=== PATIENT | male | born 1960 | race Caucasian/White ===

== ENCOUNTER 2018-07-17 10:40 | Inpatient (IN) | payer MEDICARE, MEDICAID ==
[2018-07-17 11:29] LABS: HEMOGLOBIN 12.1 gm/dL (12-16)
[2018-07-17 11:31] LABS: % BASOPHILS 0.2 % (0.0-2.0); % EOSINOPHILS 0.2 % (0.0-5.0); % LYMPHOCYTES 14.6 % (20.0-50.0); % MONOCYTES 12.8 % (2.0-10.0); % NEUTROPHILS 72.2 % (40.0-80.0); HEMATOCRIT 37.2 % (41.0-60); LYMPHOCYTE ABSOLUTE 1.5 Th/cmm (1.5-3.0); MEAN CELL VOLUME 95.5 fl (80-99); MEAN CORPUSCULAR HEMOGLOBIN 31.1 pg (26.0-30.0); MEAN CORPUSCULAR HGB CONC 32.6 pg (28.0-36.0); MEAN PLATELET VOLUME 8.2 fl; MONOCYTE ABSOLUTE 1.3 Th/cmm (0.3-1.0); NEUTROPHILE ABSOLUTE 7.2 Th/cmm (1.8-8.0); PLATELET COUNT 355 Th/cmm (150-400); RED BLOOD COUNT 3.89 Mil/cmm (4.30-5.70); RED CELL DISTRIBUTION WIDTH 12.9 % (11.5-20.0)
[2018-07-17 11:38] LABS: INR 0.99 (0.5-1.4); PROTHROMBIN TIME (TEST) 10.3 SECONDS (9.5-11.5)
[2018-07-17 11:44] LABS: ALB/GLOB RATIO 0.9 (1.0-1.8); ALBUMIN 3.4 gm/dL (4.2-5.5); ALKALINE PHOSPHATASE 80 U/L (34-104); ANION GAP 13.7 (7.0-16.0); BILIRUBIN,TOTAL 0.3 mg/dL (0.3-1.0); BUN - UREA NITROGEN 25 mg/dL (7-25); CARBON DIOXIDE 30.7 mEq/L (21.0-31.0); CHLORIDE 96 mEq/L (98-107); CREATININE - SERUM 0.5 mg/dL (0.7-1.3); GFR AFRICAN-AMERICAN > 60.0 ml/min (>90); GFR NON AFRICAN-AMERICAN > 60.0 ml/min; GLUCOSE 131 mg/dL (70-105); POTASSIUM SERUM 3.4 mEq/L (3.5-5.1); SGOT 20 U/L (13-39); SGPT/ALT 15 U/L (7-52); SODIUM SERUM 137 mEq/L (136-145)
[2018-07-17 11:54] LABS: URINE SOURCE CLEAN C
[2018-07-17 11:59] LABS: URINE BILIRUBIN NEGATIVE (NEGATIVE); URINE BLOOD MODERATE (NEGATIVE); URINE GLUCOSE (UA) NEGATIVE (NEGATIVE); URINE KETONE NEGATIVE (NEGATIVE); URINE LEUKOCYTE ESTERASE SMALL (NEGATIVE); URINE MICROSCOPIC INDICATED? YES; URINE NITRATE NEGATIVE (NEGATIVE); URINE PH 8.5 (4.6 - 8.0); URINE PROTEIN 30 mg/dL (NEGATIVE); URINE UROBILINOGEN 0.2 E.U./dL (0.2 - 1.0)
[2018-07-17 12:02] LABS: URINE CLARITY CLOUDY (CLEAR); URINE COLOR GRAY
[2018-07-17] MEDS ORDERED: IOHEXOL 300mgI/mL 100 ML VIAL ONE (12:05)
[2018-07-17 12:09] LABS: URINE BACTERIA 4+ /hpf (NONE SEEN)
[2018-07-17 12:11] LABS: URINE EPITHELIAL CELLS MANY /lpf (FEW)
--- NOTE | 2018-07-17 13:13 | ED Physician Chart ---
ED Chief Complaint/HPI - Patient Information Allergies:: Allergies Allergy/AdvReac Type Severity Reaction Status Date / Time No Known Allergies Allergy Verified 07/17/18 10:53 Vitals:: Vital Signs - 8 hr 07/17/18 10:54 Temp 98.6 F HR 111 RR 16 BP 114/74 O2 Sat % 96 Family Medical History - Family Member Mother History Unknown: Yes ED Labs/Radiology/EKG Results - Lab Results Results: Laboratory Tests 07/17/18 07/17/18 07/17/18 11:00 11:06 11:16 WBC RBC Hgb Hct MCV MCH MCHC Differential RDW Plt Count MPV Neutrophils % Lymphocytes % Monocytes % Eosinophils % Basophils % PT 10.3 INR 0.99 PTT (Actin FS) 26.2 Sodium Potassium Chloride Carbon Dioxide Anion Gap BUN Creatinine Est GFR ( Amer) Est GFR (Non-Af Amer) BUN/Creatinine Ratio Glucose Calcium Total Bilirubin AST ALT Alkaline Phosphatase Troponin I Total Protein Albumin Globulin Albumin/Globulin Ratio TSH 13.02 H Urine Source CLEAN C Urine Color [place] Urine Clarity CLOUDY Urine pH 8.5 Ur Specific [place] <= 1.005 Urine Protein 30 H Urine Glucose (UA) NEGATIVE Urine Ketones NEGATIVE Urine Blood MODERATE H Urine Nitrate NEGATIVE Urine Bilirubin NEGATIVE Urine Urobilinogen 0.2 Ur Leukocyte Esterase SMALL H Urine RBC 5-10 H Urine WBC 6-10 Ur Epithelial Cells MANY Urine Bacteria 4+ H 07/17/18 07/17/18 07/17/18 11:16 11:16 11:16 WBC 10.0 RBC 3.89 L Hgb 12.1 Hct 37.2 L MCV 95.5 MCH 31.1 H MCHC Differential 32.6 RDW 12.9 Plt Count 355 MPV 8.2 Neutrophils % 72.2 Lymphocytes % 14.6 L Monocytes % 12.8 H Eosinophils % 0.2 Basophils % 0.2 PT INR PTT (Actin FS) Sodium 137 Potassium 3.4 L Chloride 96 L Carbon Dioxide 30.7 Anion Gap 13.7 BUN 25 Creatinine 0.5 L Est GFR ( Amer) > 60.0 Est GFR (Non-Af Amer) > 60.0 BUN/Creatinine Ratio 50.0 Glucose 131 H Calcium 10.0 Total Bilirubin 0.3 AST 20 ALT 15 Alkaline Phosphatase 80 Troponin I 0.03 Total Protein 7.0 Albumin 3.4 L Globulin 3.6 Albumin/Globulin Ratio 0.9 L TSH Urine Source Urine Color Urine Clarity Urine pH Ur Specific [place] Urine Protein Urine Glucose (UA) Urine Ketones Urine Blood Urine Nitrate Urine Bilirubin Urine Urobilinogen Ur Leukocyte Esterase Urine RBC Urine WBC Ur Epithelial Cells Urine Bacteria - Radiology Results Results: Abnormal Lab Results 07/17/18 07/17/18 07/17/18 11:00 11:06 11:16 WBC RBC Hgb Hct MCV MCH MCHC Differential RDW Plt Count MPV Neutrophils % Lymphocytes % Monocytes % Eosinophils % Basophils % PT 10.3 INR 0.99 PTT (Actin FS) 26.2 Sodium Potassium Chloride Carbon Dioxide Anion Gap BUN Creatinine Est GFR ( Amer) Est GFR (Non-Af Amer) BUN/Creatinine Ratio Glucose Calcium Total Bilirubin AST ALT Alkaline Phosphatase Troponin I Total Protein Albumin Globulin Albumin/Globulin Ratio TSH 13.02 H Urine Source CLEAN C Urine Color [place] Urine Clarity CLOUDY Urine pH 8.5 Ur Specific [place] <= 1.005 Urine Protein 30 H Urine Glucose (UA) NEGATIVE Urine Ketones NEGATIVE Urine Blood MODERATE H Urine Nitrate NEGATIVE Urine Bilirubin NEGATIVE Urine Urobilinogen 0.2 Ur Leukocyte Esterase SMALL H Urine RBC 5-10 H Urine WBC 6-10 Ur Epithelial Cells MANY Urine Bacteria 4+ H 07/17/18 07/17/18 07/17/18 11:16 11:16 11:16 WBC 10.0 RBC 3.89 L Hgb 12.1 Hct 37.2 L MCV 95.5 MCH 31.1 H MCHC Differential 32.6 RDW 12.9 Plt Count 355 MPV 8.2 Neutrophils % 72.2 Lymphocytes % 14.6 L Monocytes % 12.8 H Eosinophils % 0.2 Basophils % 0.2 PT INR PTT (Actin FS) Sodium 137 Potassium 3.4 L Chloride 96 L Carbon Dioxide 30.7 Anion Gap 13.7 BUN 25 Creatinine 0.5 L Est GFR ( Amer) > 60.0 Est GFR (Non-Af Amer) > 60.0 BUN/Creatinine Ratio 50.0 Glucose 131 H Calcium 10.0 Total Bilirubin 0.3 AST 20 ALT 15 Alkaline Phosphatase 80 Troponin I 0.03 Total Protein 7.0 Albumin 3.4 L Globulin 3.6 Albumin/Globulin Ratio 0.9 L TSH Urine Source Urine Color Urine Clarity Urine pH Ur Specific [place] Urine Protein Urine Glucose (UA) Urine Ketones Urine Blood Urine Nitrate Urine Bilirubin Urine Urobilinogen Ur Leukocyte Esterase Urine RBC Urine WBC Ur Epithelial Cells Urine Bacteria - EKG Interpretations EKG Time:: 10:59 Rate & Rhythm: rate = 112 [place]: right Intervals: no ectopy ED Assessment - Assessment General Assessment: bowel obstruction ED Septic Shock - . Is Septic Shock (SBP<90, OR Lactate>4 mmol\L) present?: No - <6hrs of presentation: Vital Signs: Vital Signs - 8 hr 07/17/18 10:54 Temp 98.6 F HR 111 RR 16 BP 114/74 O2 Sat % 96 ED Reassessment (Disposition) - Reassessment Reassessment Condition:: Improved - Diagnosis Diagnosis:: FECAL IMPACTION CEREBRAL PALSY THROID DISEASE SEIZURES DYSPHAGIA - Patient Disposition Discharge/Transfer:: Acute Care w/in this hosp Admitted to:: Med/Surg Admitting Medical Physician:: Jerome Mcginnis Condition at Disposition:: Unchanged
[2018-07-17] MEDS ORDERED: Ipratropium Neb 0.5 mg/2.5 mL UD IH PRN (13:20)
[2018-07-17] MEDS ORDERED: Morphine Sulfate 2 mg/mL 1mL Syr IVP PRN (13:20)
[2018-07-17] MEDS ORDERED: Maalox 30 mL Cup PO PRN (13:20)
[2018-07-17] MEDS ORDERED: Albuterol Nebulizer 2.5mg/3mL HHN PRN (13:20)
[2018-07-17] MEDS: D5-0.9%NS 1,000 ML IV SCH (15:11)
[2018-07-17] MEDS: cefTRIAXone 1 GM in Sodium Chloride 0.9% 50 ML IV SCH (15:12)
[2018-07-18] MEDS: D5-0.9%NS 1,000 ML IV SCH ×2 (05:05→21:13)
[2018-07-18] MEDS: Fleet Enema 135 mL RC PRN ×2 (05:09→17:02)
[2018-07-18 06:04] LABS: % BASOPHILS 0.4 % (0.0-2.0); % EOSINOPHILS 0.4 % (0.0-5.0); % LYMPHOCYTES 26.5 % (20.0-50.0); % MONOCYTES 11.9 % (2.0-10.0); % NEUTROPHILS 60.8 % (40.0-80.0); HEMATOCRIT 32.5 % (41.0-60); HEMOGLOBIN 10.6 gm/dL (12-16); MEAN CELL VOLUME 95.7 fl (80-99); MEAN CORPUSCULAR HEMOGLOBIN 31.3 pg (26.0-30.0); MEAN CORPUSCULAR HGB CONC 32.7 pg (28.0-36.0); MEAN PLATELET VOLUME 8.2 fl; MONOCYTE ABSOLUTE 0.9 Th/cmm (0.3-1.0); NEUTROPHILE ABSOLUTE 4.5 Th/cmm (1.8-8.0); PLATELET COUNT 300 Th/cmm (150-400); RED CELL DISTRIBUTION WIDTH 12.8 % (11.5-20.0); WHITE BLOOD COUNT 7.4 Th/cmm (4.8-10.8)
[2018-07-18 06:36] LABS: ANION GAP 8.8 (7.0-16.0); BUN - UREA NITROGEN 22 mg/dL (7-25); CARBON DIOXIDE 30.1 mEq/L (21.0-31.0); CHLORIDE 106 mEq/L (98-107); CREATININE - SERUM 0.5 mg/dL (0.7-1.3); GFR AFRICAN-AMERICAN > 60.0 ml/min (>90); GFR NON AFRICAN-AMERICAN > 60.0 ml/min; GLUCOSE 99 mg/dL (70-105); SODIUM SERUM 142 mEq/L (136-145)
[2018-07-18 06:38] LABS: POTASSIUM SERUM 2.9 mEq/L (3.5-5.1)
[2018-07-18] MEDS: Levothyroxine 0.05 Mg Tab PO SCH (06:42)
[2018-07-18] MEDS: POLYETHYLENE GLYCOL 3350 17 GM PACK PO SCH ×2 (08:41→17:01)
[2018-07-18] MEDS: Multivitamin Tab PO SCH (08:42)
[2018-07-18] MEDS ORDERED: Non-Formulary Item 1 EA (Multivit,Th Iron,Other Min [Thera-M] 1 TAB) GT SCH (09:00)
[2018-07-18] MEDS ORDERED: VALPROIC ACID 250 MG GT SCH (09:00)
[2018-07-18] MEDS ORDERED: Potassium Chloride Elixir 20 mEq /15 mL UDC GT ONE (09:22)
--- NOTE | 2018-07-18 09:28 | Diagnostic Imaging Report ---
Some: CT examination of the pelvis HISTORY: Distention Total DLP equals 300 CTDI equals 5.5 Findings: Multiple contiguous thin section of the abdomen pelvis obtained at plane with coronal sagittal reconstruction technique. The study was performed with administration of intravenous contrast material, no prior studies available The study demonstrates a predominantly left-sided pneumonia and superimposed bilateral effusions greater on the right side. There is evidence for a serial distended colon with fecal impaction. The liver parenchyma is intact the spleen is normal. The kidneys concentrate and excrete contrast material normal fashion. Gastrostomy tube is in stomach. There is evidence for mesenteric edema throughout. Small amount of free fluid is noted. The urinary bladder is distended. Prostate gland calcified. IMPRESSION: Left-sided pneumonia and bilateral pleural effusions Severe distended colon with air due to fecal impaction. Mesenteric edema Distended urinary bladder Gastrostomy tube in the stomach.
--- NOTE | 2018-07-18 09:30 | Diagnostic Imaging Report ---
Exam: Chest x-ray HISTORY: Shortness of breath. Findings: Frontal examination of chest reviewed no prior studies available comparison. The study demonstrates left lower lobe infiltrate and most likely pleural thickening versus effusion. The right lung parenchyma demonstrates right basilar atelectasis. The study demonstrates severely distended colon with fecal impaction. IMPRESSION: left lower lobe infiltrate and effusion, right basilar atelectasis pleural thickening. Serial distended colon with air due to fecal impaction.
--- NOTE | 2018-07-18 09:51 | Diagnostic Imaging Report ---
Exam: Portable KUB of the abdomen. HISTORY: Distention. Findings: Portable summation of the abdomen is 0821 hours reviewed compared to prior study the early demonstrates severe fecal impaction with distention of proximal small bowel loops and the proximal colon. Residual contrast material is noted throughout the left colon. Urinary bladder is opacified with contrast material from previous examination. IMPRESSION: Fecal impaction, distention of small bowel large bowel loops into throughout. There is a question of gastrostomy tube.
[2018-07-18] MEDS: Magnesium Hydroxide (MOM) 30 mL UDC GT PRN (10:08)
--- NOTE | 2018-07-18 11:21 | Consultation ---
DATE OF CONSULTATION: 07/18/2018 INPATIENT GASTROINTESTINAL CONSULTATION REFERRING PHYSICIAN: Dr. Mcginnis. REASON FOR CONSULTATION: Constipation, fecal impaction. HISTORY: This is a 57-year-old male brought in from a facility with constipation and abdominal distention. The patient is otherwise poor historian, unable to give any meaningful history. PAST MEDICAL HISTORY: Cerebral palsy, thyroid disease, seizure disorder, dysphagia. PAST SURGICAL HISTORY: PEG tube placement. FAMILY HISTORY: Noncontributory. SOCIAL HISTORY: Resident of skilled facility. ALLERGIES: None. CURRENT MEDICATIONS: Tylenol, Maalox, Cogentin, Dulcolax, ceftriaxone, Synthroid, milk of magnesia, midodrine, morphine, Zofran, MiraLax, Seroquel, Risperdal, Fleet enema, Flomax, Depakote. REVIEW OF SYSTEMS: Unobtainable. PHYSICAL EXAMINATION: VITAL SIGNS: Temperature 98.1, breathing 18, pulse of 99, blood pressure 101/69, satting 95%. GENERAL: In no apparent distress. EYES: Anicteric. Normal conjunctivae. HEENT: Normocephalic, atraumatic. Moist mucous membranes. NECK: Soft, supple. CHEST: Clear. No effort. CARDIOVASCULAR: Regular rate and rhythm. ABDOMEN: Soft, mildly distended, nontender with a G-tube. SKIN: Warm, dry. EXTREMITIES: Reveal no cyanosis. PSYCHOLOGICAL: Awake. LABORATORY DATA: Labs show white count of 7.4, hemoglobin of 10.6, platelets of 300. INR 0.99. Creatinine 0.55. Total bilirubin 0.3, AST 20, ALT 15, alk phos 80. Preliminary x-ray shows a G-tube in the stomach, severe fecal impaction with proximal bowel distended with air, no hydronephrosis or distended bladder. IMPRESSION: A 57-year-old male with fecal impaction, has underlying cerebral palsy, dysphagia with a G-tube. We will need laxatives to address his fecal impaction as well as enemas. PLAN: 1. Continue laxatives and enemas. 2. We will consider repeating imaging to see if it is improving. Thank you for allowing me to participate. Please call me if any questions. JOB# [id number]
--- NOTE | 2018-07-18 12:41 | Internal Medicine Prog Note ---
Internal Medicine Subjective - Subjective Service Date: 07/18/18 ([id number]) Internal Medicine Objective - Results Result Diagrams: 07/18/18 05:20 07/18/18 05:20 Recent Labs: Laboratory Last Values WBC 7.4 Th/cmm (4.8-10.8) 07/18/18 05:20 RBC 3.40 Mil/cmm (4.30-5.70) L 07/18/18 05:20 Hgb 10.6 gm/dL (12-16) L 07/18/18 05:20 Hct 32.5 % (41.0-60) L 07/18/18 05:20 MCV 95.7 fl (80-99) 07/18/18 05:20 MCH 31.3 pg (26.0-30.0) H 07/18/18 05:20 MCHC Differential 32.7 pg (28.0-36.0) 07/18/18 05:20 RDW 12.8 % (11.5-20.0) 07/18/18 05:20 Plt Count 300 Th/cmm (150-400) 07/18/18 05:20 MPV 8.2 fl 07/18/18 05:20 Neutrophils % 60.8 % (40.0-80.0) 07/18/18 05:20 Lymphocytes % 26.5 % (20.0-50.0) 07/18/18 05:20 Monocytes % 11.9 % (2.0-10.0) H 07/18/18 05:20 Eosinophils % 0.4 % (0.0-5.0) 07/18/18 05:20 Basophils % 0.4 % (0.0-2.0) 07/18/18 05:20 PT 10.3 SECONDS (9.5-11.5) 07/17/18 11:16 INR 0.99 (0.5-1.4) 07/17/18 11:16 PTT (Actin FS) 26.2 SECONDS (26.0-38.0) 07/17/18 11:16 Sodium 142 mEq/L (136-145) 07/18/18 05:20 Potassium 2.9 mEq/L (3.5-5.1) L* 07/18/18 05:20 Chloride 106 mEq/L (98-107) 07/18/18 05:20 Carbon Dioxide 30.1 mEq/L (21.0-31.0) 07/18/18 05:20 Anion Gap 8.8 (7.0-16.0) 07/18/18 05:20 BUN 22 mg/dL (7-25) 07/18/18 05:20 Creatinine 0.5 mg/dL (0.7-1.3) L 07/18/18 05:20 Est GFR ( Amer) > 60.0 ml/min (>90) 07/18/18 05:20 Est GFR (Non-Af Amer) > 60.0 ml/min 07/18/18 05:20 BUN/Creatinine Ratio 44.0 07/18/18 05:20 Glucose 99 mg/dL (70-105) 07/18/18 05:20 Calcium 9.0 mg/dL (8.6-10.3) 07/18/18 05:20 Total Bilirubin 0.3 mg/dL (0.3-1.0) 07/17/18 11:16 AST 20 U/L (13-39) 07/17/18 11:16 ALT 15 U/L (7-52) 07/17/18 11:16 Alkaline Phosphatase 80 U/L (34-104) 07/17/18 11:16 Troponin I 0.03 ng/mL (0.01-0.05) 07/17/18 11:16 Total Protein 7.0 gm/dL (6.0-8.3) 07/17/18 11:16 Albumin 3.4 gm/dL (4.2-5.5) L 07/17/18 11:16 Globulin 3.6 gm/dL 07/17/18 11:16 Albumin/Globulin Ratio 0.9 (1.0-1.8) L 07/17/18 11:16 TSH 13.02 uIU/ml (0.34-5.60) H 07/17/18 11:06 Urine Source CLEAN C 07/17/18 11:00 Urine Color [place] 07/17/18 11:00 Urine Clarity CLOUDY (CLEAR) 07/17/18 11:00 Urine pH 8.5 (4.6 - 8.0) 07/17/18 11:00 Ur Specific [place] <= 1.005 (1.005-1.030) 07/17/18 11:00 Urine Protein 30 mg/dL (NEGATIVE) H 07/17/18 11:00 Urine Glucose (UA) NEGATIVE mg/dL (NEGATIVE) 07/17/18 11:00 Urine Ketones NEGATIVE mg/dL (NEGATIVE) 07/17/18 11:00 Urine Blood MODERATE (NEGATIVE) H 07/17/18 11:00 Urine Nitrate NEGATIVE (NEGATIVE) 07/17/18 11:00 Urine Bilirubin NEGATIVE (NEGATIVE) 07/17/18 11:00 Urine Urobilinogen 0.2 E.U./dL (0.2 - 1.0) 07/17/18 11:00 Ur Leukocyte Esterase SMALL (NEGATIVE) H 07/17/18 11:00 Urine RBC 5-10 /hpf (0-5) H 07/17/18 11:00 Urine WBC 6-10 /hpf (0-5) 07/17/18 11:00 Ur Epithelial Cells MANY /lpf (FEW) 07/17/18 11:00 Urine Bacteria 4+ /hpf (NONE SEEN) H 07/17/18 11:00 - Physical Exam Vitals and I&O: Vital Signs Temp 98.2 F 07/18/18 12:07 Pulse 80 07/18/18 12:07 Resp 17 07/18/18 12:07 BP 103/67 07/18/18 12:07 Pulse Ox 98 07/18/18 12:07 Intake & Output 07/17/18 07/18/18 07/18/18 18:59 06:59 18:59 Intake Total 1000 Balance 1000 Weight (lbs) 125 lb 87 lb Intake: Intake, IV Amount 1000 D5-0.9%Ns 1,000 ml @ 80 1000 mls/hr IV .[id number] [facility] Rx #:[id number] Other: Weight Source Estimated Bedscale Active Medications: Current Medications Acetaminophen (Tylenol) 650 mg PO Q4H PRN PRN Reason: Pain Or Fever above 101 Stop: 09/15/18 13:21 Al Hydrox/Mg Hydrox/Simethicone (Maalox) 30 ml PO Q6H PRN PRN Reason: Dyspepsia Stop: 09/15/18 13:19 Albuterol Sulfate (Albuterol 2.5mg/3ml Neb Ud) 2.5 mg HHN Q2HRT PRN PRN Reason: Shortness of Breath or Wheeze Stop: 09/15/18 13:19 Benztropine Mesylate (Cogentin) 0.5 mg GT TID [facility] Stop: 09/15/18 13:59 Last Admin: 07/18/18 08:42 Dose: 0.5 mg Bisacodyl (Dulcolax 10 Mg Supp) 10 mg RC DAILY PRN PRN Reason: Constipation Stop: 09/15/18 13:17 Last Admin: 07/18/18 10:01 Dose: 10 mg Calcium Carbonate (Os-Segundo) 500 mg GT DAILY [facility] Stop: 09/16/18 08:59 Last Admin: 07/18/18 08:42 Dose: 500 mg Dextrose/Sodium Chloride (D5-0.9%Ns) 1,000 mls @ 80 mls/hr IV .[id number] [facility] Stop: 09/15/18 13:29 Last Admin: 07/18/18 05:05 Dose: 80 mls/hr Ceftriaxone Sodium 1 gm/ (Sodium Chloride) 50 mls @ 100 mls/hr IV Q24HR [facility] Stop: 09/15/18 13:29 Last Admin: 07/17/18 15:12 Dose: 100 mls/hr Ipratropium [place] (Atrovent Neb 0.5mg/2.5ml) 0.5 mg IH Q2HRT PRN PRN Reason: Shortness of Breath or Wheeze Stop: 09/15/18 13:19 Levothyroxine Sodium (Synthroid) 0.05 mg PO QDAC [facility] Stop: 09/16/18 07:29 Last Admin: 07/18/18 06:42 Dose: 0.05 mg Magnesium Hydroxide (Milk Of Magnesia) 30 ml GT Q2D PRN PRN Reason: Constipation Stop: 09/15/18 13:17 Last Admin: 07/18/18 10:08 Dose: 30 ml Midodrine (Proamatine) 5 mg PO TID [facility] Stop: 09/16/18 08:59 Last Admin: 07/18/18 08:42 Dose: 5 mg Morphine Sulfate (Morphine) 2 mg IVP Q4H PRN PRN Reason: Abdominal Pain Stop: 09/15/18 13:19 Multivitamins/Vitamin C (Theragran) 1 tab PO DAILY [facility] Stop: 09/16/18 08:59 Last Admin: 07/18/18 08:42 Dose: 1 tab Ondansetron HCl (Zofran) 4 mg IV Q8H PRN PRN Reason: Nausea / Vomiting Stop: 09/15/18 13:21 Polyethylene Glycol (Miralax) 17 gm PO BID [facility] Stop: 09/16/18 08:59 Last Admin: 07/18/18 08:41 Dose: 17 gm Quetiapine Fumarate (Seroquel) 100 mg GT BID [facility]; Protocol Stop: 09/15/18 16:59 Last Admin: 07/18/18 08:42 Dose: 100 mg Risperidone (Risperdal) 0.5 mg GT BID [facility]; Protocol Stop: 09/15/18 16:59 Last Admin: 07/18/18 08:42 Dose: 0.5 mg Sodium Phosphate (Fleet Enema) 135 ml RC PRN PRN PRN Reason: Constipation Stop: 09/15/18 13:17 Last Admin: 07/18/18 05:09 Dose: 135 ml Tamsulosin HCl (Flomax) 0.4 mg GT HS [facility] Stop: 09/15/18 20:59 Last Admin: 07/17/18 20:48 Dose: 0.4 mg Valproate Sodium (Depakene) 250 mg GT DAILY [facility] Stop: 09/16/18 08:59 Last Admin: 07/18/18 08:41 Dose: 250 mg
[2018-07-18] MEDS: cefTRIAXone 1 GM in Sodium Chloride 0.9% 50 ML IV SCH (13:26)
--- NOTE | 2018-07-18 14:41 | History & Physical ---
ADMIT DATE: 07/18/2018 CHIEF COMPLAINT: Abdominal distention. HISTORY OF PRESENT ILLNESS: This is a 57-year-old male who is a halfway resident of [facility], admitted here to the med/surg unit due to abdominal distention and constipation. No reports of any fevers at the halfway. PAST MEDICAL HISTORY: Cerebral palsy, hypothyroid, seizure disorder, dysphagia. PAST SURGICAL HISTORY: PEG. FAMILY HISTORY: Noncontributory. SOCIAL HISTORY: The patient is a resident of [facility]. ALLERGIES: No drug allergies. MEDICATIONS: Rocephin, Dulcolax, Cogentin, Maalox, Synthroid, MOM, midodrine, morphine, Zofran, MiraLax, Seroquel, Risperdal, Flomax, Depakote. REVIEW OF SYSTEMS: Unable to obtain due to patient's mental status. PHYSICAL EXAMINATION: GENERAL: The patient is thin, awake, alert, no apparent distress. VITAL SIGNS: Temperature 98.0, heart rate 80, blood pressure 103/67, respirations 17, O2 98%. HEENT: Head, normocephalic and atraumatic. NECK: Supple. No mass. LUNGS: Clear bilaterally. HEART: Regular rhythm. ABDOMEN: Mildly distended. EXTREMITIES: No edema noted. LABORATORY DATA: WBC 10.0, H and H 12.1 and 37.2, platelets 355. Sodium 137, potassium 3.4, chloride 96, BUN 25, creatinine 0.5. Albumin 3.4. Urinalysis, the patient had a urinalysis positive for UTI. The patient had a KUB done; impression is fecal impaction, distention of small bowel and large bowel loops throughout. ASSESSMENT: Abdominal pain secondary to fecal impaction, acute urinary tract infection, hypokalemia, mild proteincalorie malnutrition, hypothyroidism, cerebral palsy, seizure disorder, dysphagia. PLAN: The patient to be admitted to telemetry unit. We will get GI consultation. We will get a GI cocktail. Monitor patient's electrolytes. We will start the patient on empiric IV antibiotic of Rocephin empirically for urinary tract infection. We will continue to monitor this patient. JOB# [id number]
[2018-07-19 05:12] LABS: % BASOPHILS 0.7 % (0.0-2.0); % EOSINOPHILS 0.9 % (0.0-5.0); % LYMPHOCYTES 23.6 % (20.0-50.0); % MONOCYTES 11.1 % (2.0-10.0); % NEUTROPHILS 63.7 % (40.0-80.0); HEMATOCRIT 32.9 % (41.0-60); HEMOGLOBIN 11.1 gm/dL (12-16); LYMPHOCYTE ABSOLUTE 1.2 Th/cmm (1.5-3.0); MEAN CELL VOLUME 95.5 fl (80-99); MEAN CORPUSCULAR HEMOGLOBIN 32.1 pg (26.0-30.0); MEAN CORPUSCULAR HGB CONC 33.7 pg (28.0-36.0); MEAN PLATELET VOLUME 7.6 fl; MONOCYTE ABSOLUTE 0.6 Th/cmm (0.3-1.0); NEUTROPHILE ABSOLUTE 3.3 Th/cmm (1.8-8.0); PLATELET COUNT 348 Th/cmm (150-400); RED BLOOD COUNT 3.44 Mil/cmm (4.30-5.70); RED CELL DISTRIBUTION WIDTH 12.6 % (11.5-20.0); WHITE BLOOD COUNT 5.1 Th/cmm (4.8-10.8)
[2018-07-19 05:37] LABS: ANION GAP 9.9 (7.0-16.0); BUN - UREA NITROGEN 14 mg/dL (7-25); CALCIUM SERUM 8.8 mg/dL (8.6-10.3); CARBON DIOXIDE 28.8 mEq/L (21.0-31.0); CHLORIDE 112 mEq/L (98-107); CREATININE - SERUM 0.5 mg/dL (0.7-1.3); GFR AFRICAN-AMERICAN > 60.0 ml/min (>90); GFR NON AFRICAN-AMERICAN > 60.0 ml/min; GLUCOSE 103 mg/dL (70-105); POTASSIUM SERUM 3.7 mEq/L (3.5-5.1); SODIUM SERUM 147 mEq/L (136-145)
[2018-07-19] MEDS: Levothyroxine 0.05 Mg Tab PO SCH (07:26)
[2018-07-19] MEDS ORDERED: Diatrizoate Meglumine/Diatri 30 mL Sol PO ONE ×2 (09:04)
--- NOTE | 2018-07-19 10:09 | GI Progress Note ---
Subjective - Review of Systems Subjective: NO BM Objective - Results Result Diagrams: 07/19/18 04:55 07/19/18 04:55 Recent Labs: Laboratory Last Values WBC 5.1 Th/cmm (4.8-10.8) 07/19/18 04:55 RBC 3.44 Mil/cmm (4.30-5.70) L 07/19/18 04:55 Hgb 11.1 gm/dL (12-16) L 07/19/18 04:55 Hct 32.9 % (41.0-60) L 07/19/18 04:55 MCV 95.5 fl (80-99) 07/19/18 04:55 MCH 32.1 pg (26.0-30.0) H 07/19/18 04:55 MCHC Differential 33.7 pg (28.0-36.0) 07/19/18 04:55 RDW 12.6 % (11.5-20.0) 07/19/18 04:55 Plt Count 348 Th/cmm (150-400) 07/19/18 04:55 MPV 7.6 fl 07/19/18 04:55 Neutrophils % 63.7 % (40.0-80.0) 07/19/18 04:55 Lymphocytes % 23.6 % (20.0-50.0) 07/19/18 04:55 Monocytes % 11.1 % (2.0-10.0) H 07/19/18 04:55 Eosinophils % 0.9 % (0.0-5.0) 07/19/18 04:55 Basophils % 0.7 % (0.0-2.0) 07/19/18 04:55 PT 10.3 SECONDS (9.5-11.5) 07/17/18 11:16 INR 0.99 (0.5-1.4) 07/17/18 11:16 PTT (Actin FS) 26.2 SECONDS (26.0-38.0) 07/17/18 11:16 Sodium 147 mEq/L (136-145) H 07/19/18 04:55 Potassium 3.7 mEq/L (3.5-5.1) 07/19/18 04:55 Chloride 112 mEq/L (98-107) H 07/19/18 04:55 Carbon Dioxide 28.8 mEq/L (21.0-31.0) 07/19/18 04:55 Anion Gap 9.9 (7.0-16.0) 07/19/18 04:55 BUN 14 mg/dL (7-25) 07/19/18 04:55 Creatinine 0.5 mg/dL (0.7-1.3) L 07/19/18 04:55 Est GFR ( Amer) > 60.0 ml/min (>90) 07/19/18 04:55 Est GFR (Non-Af Amer) > 60.0 ml/min 07/19/18 04:55 BUN/Creatinine Ratio 28.0 07/19/18 04:55 Glucose 103 mg/dL (70-105) 07/19/18 04:55 Calcium 8.8 mg/dL (8.6-10.3) 07/19/18 04:55 Total Bilirubin 0.3 mg/dL (0.3-1.0) 07/17/18 11:16 AST 20 U/L (13-39) 07/17/18 11:16 ALT 15 U/L (7-52) 07/17/18 11:16 Alkaline Phosphatase 80 U/L (34-104) 07/17/18 11:16 Troponin I 0.03 ng/mL (0.01-0.05) 07/17/18 11:16 Total Protein 7.0 gm/dL (6.0-8.3) 07/17/18 11:16 Albumin 3.4 gm/dL (4.2-5.5) L 07/17/18 11:16 Globulin 3.6 gm/dL 07/17/18 11:16 Albumin/Globulin Ratio 0.9 (1.0-1.8) L 07/17/18 11:16 TSH 13.02 uIU/ml (0.34-5.60) H 07/17/18 11:06 Urine Source CLEAN C 07/17/18 11:00 Urine Color [place] 07/17/18 11:00 Urine Clarity CLOUDY (CLEAR) 07/17/18 11:00 Urine pH 8.5 (4.6 - 8.0) 07/17/18 11:00 Ur Specific [place] <= 1.005 (1.005-1.030) 07/17/18 11:00 Urine Protein 30 mg/dL (NEGATIVE) H 07/17/18 11:00 Urine Glucose (UA) NEGATIVE mg/dL (NEGATIVE) 07/17/18 11:00 Urine Ketones NEGATIVE mg/dL (NEGATIVE) 07/17/18 11:00 Urine Blood MODERATE (NEGATIVE) H 07/17/18 11:00 Urine Nitrate NEGATIVE (NEGATIVE) 07/17/18 11:00 Urine Bilirubin NEGATIVE (NEGATIVE) 07/17/18 11:00 Urine Urobilinogen 0.2 E.U./dL (0.2 - 1.0) 07/17/18 11:00 Ur Leukocyte Esterase SMALL (NEGATIVE) H 07/17/18 11:00 Urine RBC 5-10 /hpf (0-5) H 07/17/18 11:00 Urine WBC 6-10 /hpf (0-5) 07/17/18 11:00 Ur Epithelial Cells MANY /lpf (FEW) 07/17/18 11:00 Urine Bacteria 4+ /hpf (NONE SEEN) H 07/17/18 11:00 - Physical Exam Vitals and I&O: Vital Signs Temp 97.6 F 07/19/18 07:52 Pulse 83 07/19/18 07:52 Resp 18 07/19/18 07:52 BP 113/73 07/19/18 07:52 Pulse Ox 98 07/19/18 07:52 Intake & Output 07/18/18 07/19/18 07/19/18 18:59 06:59 18:59 Intake Total 1000 Balance 1000 Weight (lbs) 39.463 kg 39.463 kg Intake: Intake, IV Amount 1000 D5-0.9%Ns 1,000 ml @ 80 1000 mls/hr IV .[id number] [facility] Rx #:[id number] Oral 0 Other: # Voids 3 2 # Bowel Movements 0 0 Weight Source Bedscale Bedscale Active Medications: Current Medications Acetaminophen (Tylenol) 650 mg PO Q4H PRN PRN Reason: Pain Or Fever above 101 Stop: 09/15/18 13:21 Al Hydrox/Mg Hydrox/Simethicone (Maalox) 30 ml PO Q6H PRN PRN Reason: Dyspepsia Stop: 09/15/18 13:19 Albuterol Sulfate (Albuterol 2.5mg/3ml Neb Ud) 2.5 mg HHN Q2HRT PRN PRN Reason: Shortness of Breath or Wheeze Stop: 09/15/18 13:19 Benztropine Mesylate (Cogentin) 0.5 mg GT TID [facility] Stop: 09/15/18 13:59 Last Admin: 07/18/18 21:01 Dose: 0.5 mg Bisacodyl (Dulcolax 10 Mg Supp) 10 mg RC DAILY PRN PRN Reason: Constipation Stop: 09/15/18 13:17 Last Admin: 07/18/18 10:01 Dose: 10 mg Calcium Carbonate (Os-Segundo) 500 mg GT DAILY [facility] Stop: 09/16/18 08:59 Last Admin: 07/18/18 08:42 Dose: 500 mg Dextrose/Sodium Chloride (D5-0.9%Ns) 1,000 mls @ 80 mls/hr IV .[id number] [facility] Stop: 09/15/18 13:29 Last Admin: 07/18/18 21:13 Dose: 80 mls/hr Ceftriaxone Sodium 1 gm/ (Sodium Chloride) 50 mls @ 100 mls/hr IV Q24HR [facility] Stop: 09/15/18 13:29 Last Admin: 07/18/18 13:26 Dose: 100 mls/hr Ipratropium [place] (Atrovent Neb 0.5mg/2.5ml) 0.5 mg IH Q2HRT PRN PRN Reason: Shortness of Breath or Wheeze Stop: 09/15/18 13:19 Levothyroxine Sodium (Synthroid) 0.05 mg PO QDAC [facility] Stop: 09/16/18 07:29 Last Admin: 07/19/18 07:26 Dose: 0.05 mg Magnesium Hydroxide (Milk Of Magnesia) 30 ml GT Q2D PRN PRN Reason: Constipation Stop: 09/15/18 13:17 Last Admin: 07/18/18 10:08 Dose: 30 ml Midodrine (Proamatine) 5 mg PO TID [facility] Stop: 09/16/18 08:59 Last Admin: 07/18/18 21:01 Dose: 5 mg Morphine Sulfate (Morphine) 2 mg IVP Q4H PRN PRN Reason: Abdominal Pain Stop: 09/15/18 13:19 Multivitamins/Vitamin C (Theragran) 1 tab PO DAILY [facility] Stop: 09/16/18 08:59 Last Admin: 07/18/18 08:42 Dose: 1 tab Ondansetron HCl (Zofran) 4 mg IV Q8H PRN PRN Reason: Nausea / Vomiting Stop: 09/15/18 13:21 Polyethylene Glycol (Miralax) 17 gm PO BID [facility] Stop: 09/16/18 08:59 Last Admin: 07/18/18 17:01 Dose: 17 gm Quetiapine Fumarate (Seroquel) 100 mg GT BID [facility]; Protocol Stop: 09/15/18 16:59 Last Admin: 07/18/18 17:01 Dose: 100 mg Risperidone (Risperdal) 0.5 mg GT BID [facility]; Protocol Stop: 09/15/18 16:59 Last Admin: 07/18/18 17:01 Dose: 0.5 mg Sodium Phosphate (Fleet Enema) 135 ml RC PRN PRN PRN Reason: Constipation Stop: 09/15/18 13:17 Last Admin: 07/18/18 17:02 Dose: 135 ml Tamsulosin HCl (Flomax) 0.4 mg GT HS [facility] Stop: 09/15/18 20:59 Last Admin: 07/18/18 21:02 Dose: 0.4 mg Valproate Sodium (Depakene) 250 mg GT DAILY [facility] Stop: 09/16/18 08:59 Last Admin: 07/18/18 08:41 Dose: 250 mg Assessment/Plan - Assessment Assessment: 57 YO MALE WITH FECAL IMPACTION HAS GT 1.CHECK KUB 2.CONT LAXATIVES
--- NOTE | 2018-07-19 10:21 | Diagnostic Imaging Report ---
KUB (with Gastrografin) HISTORY: Gastrostomy tube placement Water-soluble contrast was instilled through patient's gastrostomy tube. The exam demonstrates opacification the gastric lumen with free flow of contrast into the small bowel. IMPRESSION: 1. Confirmation of gastrostomy tube within the gastric lumen.
[2018-07-19] MEDS: Multivitamin Tab PO SCH (10:49)
[2018-07-19] MEDS: POLYETHYLENE GLYCOL 3350 17 GM PACK PO SCH ×2 (10:51→17:04)
[2018-07-19] MEDS: D5-0.9%NS 1,000 ML IV SCH (11:01)
--- NOTE | 2018-07-19 13:18 | Internal Medicine Prog Note ---
Internal Medicine Subjective - Subjective Patient seen and examined:: with staff, chart reviewed Patient is:: awake, non-verbal, non-interactive Patient Complaints of:: constipation Per staff patient has:: no adverse event, tolerating meds Internal Medicine Objective - Results Result Diagrams: 07/19/18 04:55 07/19/18 04:55 Recent Labs: Laboratory Last Values WBC 5.1 Th/cmm (4.8-10.8) 07/19/18 04:55 RBC 3.44 Mil/cmm (4.30-5.70) L 07/19/18 04:55 Hgb 11.1 gm/dL (12-16) L 07/19/18 04:55 Hct 32.9 % (41.0-60) L 07/19/18 04:55 MCV 95.5 fl (80-99) 07/19/18 04:55 MCH 32.1 pg (26.0-30.0) H 07/19/18 04:55 MCHC Differential 33.7 pg (28.0-36.0) 07/19/18 04:55 RDW 12.6 % (11.5-20.0) 07/19/18 04:55 Plt Count 348 Th/cmm (150-400) 07/19/18 04:55 MPV 7.6 fl 07/19/18 04:55 Neutrophils % 63.7 % (40.0-80.0) 07/19/18 04:55 Lymphocytes % 23.6 % (20.0-50.0) 07/19/18 04:55 Monocytes % 11.1 % (2.0-10.0) H 07/19/18 04:55 Eosinophils % 0.9 % (0.0-5.0) 07/19/18 04:55 Basophils % 0.7 % (0.0-2.0) 07/19/18 04:55 PT 10.3 SECONDS (9.5-11.5) 07/17/18 11:16 INR 0.99 (0.5-1.4) 07/17/18 11:16 PTT (Actin FS) 26.2 SECONDS (26.0-38.0) 07/17/18 11:16 Sodium 147 mEq/L (136-145) H 07/19/18 04:55 Potassium 3.7 mEq/L (3.5-5.1) 07/19/18 04:55 Chloride 112 mEq/L (98-107) H 07/19/18 04:55 Carbon Dioxide 28.8 mEq/L (21.0-31.0) 07/19/18 04:55 Anion Gap 9.9 (7.0-16.0) 07/19/18 04:55 BUN 14 mg/dL (7-25) 07/19/18 04:55 Creatinine 0.5 mg/dL (0.7-1.3) L 07/19/18 04:55 Est GFR ( Amer) > 60.0 ml/min (>90) 07/19/18 04:55 Est GFR (Non-Af Amer) > 60.0 ml/min 07/19/18 04:55 BUN/Creatinine Ratio 28.0 07/19/18 04:55 Glucose 103 mg/dL (70-105) 07/19/18 04:55 Calcium 8.8 mg/dL (8.6-10.3) 07/19/18 04:55 Total Bilirubin 0.3 mg/dL (0.3-1.0) 07/17/18 11:16 AST 20 U/L (13-39) 07/17/18 11:16 ALT 15 U/L (7-52) 07/17/18 11:16 Alkaline Phosphatase 80 U/L (34-104) 07/17/18 11:16 Troponin I 0.03 ng/mL (0.01-0.05) 07/17/18 11:16 Total Protein 7.0 gm/dL (6.0-8.3) 07/17/18 11:16 Albumin 3.4 gm/dL (4.2-5.5) L 07/17/18 11:16 Globulin 3.6 gm/dL 07/17/18 11:16 Albumin/Globulin Ratio 0.9 (1.0-1.8) L 07/17/18 11:16 TSH 13.02 uIU/ml (0.34-5.60) H 07/17/18 11:06 Urine Source CLEAN C 07/17/18 11:00 Urine Color [place] 07/17/18 11:00 Urine Clarity CLOUDY (CLEAR) 07/17/18 11:00 Urine pH 8.5 (4.6 - 8.0) 07/17/18 11:00 Ur Specific [place] <= 1.005 (1.005-1.030) 07/17/18 11:00 Urine Protein 30 mg/dL (NEGATIVE) H 07/17/18 11:00 Urine Glucose (UA) NEGATIVE mg/dL (NEGATIVE) 07/17/18 11:00 Urine Ketones NEGATIVE mg/dL (NEGATIVE) 07/17/18 11:00 Urine Blood MODERATE (NEGATIVE) H 07/17/18 11:00 Urine Nitrate NEGATIVE (NEGATIVE) 07/17/18 11:00 Urine Bilirubin NEGATIVE (NEGATIVE) 07/17/18 11:00 Urine Urobilinogen 0.2 E.U./dL (0.2 - 1.0) 07/17/18 11:00 Ur Leukocyte Esterase SMALL (NEGATIVE) H 07/17/18 11:00 Urine RBC 5-10 /hpf (0-5) H 07/17/18 11:00 Urine WBC 6-10 /hpf (0-5) 07/17/18 11:00 Ur Epithelial Cells MANY /lpf (FEW) 07/17/18 11:00 Urine Bacteria 4+ /hpf (NONE SEEN) H 07/17/18 11:00 - Physical Exam Vitals and I&O: Vital Signs Temp 97.5 F 07/19/18 11:34 Pulse 86 07/19/18 11:34 Resp 18 07/19/18 11:34 BP 116/76 07/19/18 11:34 Pulse Ox 98 07/19/18 11:34 Intake & Output 07/18/18 07/19/18 07/19/18 18:59 06:59 18:59 Intake Total 1000 1000 Balance 1000 1000 Weight (lbs) 39.463 kg 39.463 kg Intake: Intake, IV Amount 1000 1000 D5-0.9%Ns 1,000 ml @ 80 1000 1000 mls/hr IV .[id number] [facility] Rx #:[id number] Oral 0 Other: # Voids 3 2 # Bowel Movements 0 0 Weight Source Bedscale Bedscale Active Medications: Current Medications Acetaminophen (Tylenol) 650 mg PO Q4H PRN PRN Reason: Pain Or Fever above 101 Stop: 09/15/18 13:21 Al Hydrox/Mg Hydrox/Simethicone (Maalox) 30 ml PO Q6H PRN PRN Reason: Dyspepsia Stop: 09/15/18 13:19 Albuterol Sulfate (Albuterol 2.5mg/3ml Neb Ud) 2.5 mg HHN Q2HRT PRN PRN Reason: Shortness of Breath or Wheeze Stop: 09/15/18 13:19 Benztropine Mesylate (Cogentin) 0.5 mg GT TID [facility] Stop: 09/15/18 13:59 Last Admin: 07/19/18 10:49 Dose: 0.5 mg Bisacodyl (Dulcolax 10 Mg Supp) 10 mg RC DAILY PRN PRN Reason: Constipation Stop: 09/15/18 13:17 Last Admin: 07/19/18 10:50 Dose: 10 mg Calcium Carbonate (Os-Segundo) 500 mg GT DAILY [facility] Stop: 09/16/18 08:59 Last Admin: 07/19/18 10:49 Dose: 500 mg Dextrose/Sodium Chloride (D5-0.9%Ns) 1,000 mls @ 80 mls/hr IV .[id number] [facility] Stop: 09/15/18 13:29 Last Admin: 07/19/18 11:01 Dose: 80 mls/hr Ceftriaxone Sodium 1 gm/ (Sodium Chloride) 50 mls @ 100 mls/hr IV Q12HR [facility] Stop: 09/17/18 20:59 Ipratropium [place] (Atrovent Neb 0.5mg/2.5ml) 0.5 mg IH Q2HRT PRN PRN Reason: Shortness of Breath or Wheeze Stop: 09/15/18 13:19 Levothyroxine Sodium (Synthroid) 0.05 mg PO QDAC [facility] Stop: 09/16/18 07:29 Last Admin: 07/19/18 07:26 Dose: 0.05 mg Magnesium Hydroxide (Milk Of Magnesia) 30 ml GT Q2D PRN PRN Reason: Constipation Stop: 09/15/18 13:17 Last Admin: 07/18/18 10:08 Dose: 30 ml Midodrine (Proamatine) 5 mg PO TID [facility] Stop: 09/16/18 08:59 Last Admin: 07/19/18 10:50 Dose: 5 mg Mineral Oil (Mineral Oil 30 Ml) 30 ml PO ONCE ONE Stop: 07/19/18 13:16 Morphine Sulfate (Morphine) 2 mg IVP Q4H PRN PRN Reason: Abdominal Pain Stop: 09/15/18 13:19 Multivitamins/Vitamin C (Theragran) 1 tab PO DAILY [facility] Stop: 09/16/18 08:59 Last Admin: 07/19/18 10:49 Dose: 1 tab Ondansetron HCl (Zofran) 4 mg IV Q8H PRN PRN Reason: Nausea / Vomiting Stop: 09/15/18 13:21 Polyethylene Glycol (Miralax) 17 gm PO BID [facility] Stop: 09/16/18 08:59 Last Admin: 07/19/18 10:51 Dose: 17 gm Quetiapine Fumarate (Seroquel) 100 mg GT BID [facility]; Protocol Stop: 09/15/18 16:59 Last Admin: 07/19/18 10:49 Dose: 100 mg Risperidone (Risperdal) 0.5 mg GT BID [facility]; Protocol Stop: 09/15/18 16:59 Last Admin: 07/19/18 10:49 Dose: 0.5 mg Sodium Phosphate (Fleet Enema) 135 ml RC PRN PRN PRN Reason: Constipation Stop: 09/15/18 13:17 Last Admin: 07/18/18 17:02 Dose: 135 ml Tamsulosin HCl (Flomax) 0.4 mg GT HS [facility] Stop: 09/15/18 20:59 Last Admin: 07/18/18 21:02 Dose: 0.4 mg Valproate Sodium (Depakene) 250 mg GT DAILY [facility] Stop: 09/16/18 08:59 Last Admin: 07/19/18 10:49 Dose: 250 mg General: demented HEENT: NC/AT, PERRLA, EOMI Neck: Supple, No JVD Lungs: congested, rales, ronchi Cardiovascular: RRR, Normal S1, Normal S2, without murmur Abdomen: soft, globular, +GT, positive bowel sound Extremities: excoriation, contracture Neurological: no change Internal Medicine Assmt/Plan - Assessment Assessment: ASSESSMENT: Abdominal pain secondary to fecal impaction, acute urinary tract infection, hypokalemia, mild proteincalorie malnutrition, hypothyroidism, cerebral palsy, seizure disorder, dysphagia. - Plan Plan: PLAN: The patient to be admitted to telemetry unit. We will get GI consultation. We will get a GI cocktail. Monitor patient's electrolytes. We will start the patient on empiric IV antibiotic of Rocephin empirically for urinary tract infection. We will continue to monitor this patient. add laxative to current orders
[2018-07-19] MEDS: cefTRIAXone 1 GM in Sodium Chloride 0.9% 50 ML IV SCH (20:37)
[2018-07-20] MEDS: D5-0.9%NS 1,000 ML IV SCH ×2 (00:34→14:14)
[2018-07-20] MEDS: Levothyroxine 0.05 Mg Tab PO SCH (06:40)
[2018-07-20] MEDS: Multivitamin Tab PO SCH (09:40)
[2018-07-20] MEDS: POLYETHYLENE GLYCOL 3350 17 GM PACK PO SCH ×2 (09:41→17:19)
[2018-07-20] MEDS: Magnesium Hydroxide (MOM) 30 mL UDC GT PRN (09:44)
[2018-07-20] MEDS: cefTRIAXone 1 GM in Sodium Chloride 0.9% 50 ML IV SCH (09:44)
--- NOTE | 2018-07-20 13:30 | Discharge Summary ---
DATE OF DISCHARGE: 07/20/2018 CHIEF COMPLAINT: Abdominal distention. FINAL DIAGNOSES: Fecal impaction, abdominal pain, UTI, hyperkalemia, protein-calorie malnutrition, hypothyroidism, cerebral palsy, seizure, dysphagia. HISTORY: This is a 57-year-old male with a history of cerebral palsy, hypothyroidism, and seizure disorder, dysphagia, admitted from nursing facility secondary to abdominal distention. The patient admitted for further management. The patient was diagnosed with UTI. PHYSICAL EXAMINATION: VITAL SIGNS: Blood pressure 109/70, respiration 18, pulse 70, temperature 97.8. GENERAL: Elderly male, appears chronically ill. NECK: Supple, nontender. LUNGS: Equal breath sounds, few rhonchi. HEART: Regular rate and rhythm without appreciable murmur. ABDOMEN: Soft, globular. EXTREMITIES: Positive excoriations. NEUROLOGIC: Limited. HOSPITAL COURSE: The patient was admitted to medical telemetry. The patient was referred to Dr. Robin Allan and given laxative IV hydration. The patient was diagnosed with UTI, IV Rocephin. The patient is being given laxative with some visual symptoms. The patient cleared for discharge. CONDITION ON DISCHARGE: Fair. DISCHARGE INSTRUCTIONS: The patient to continue with laxative and continue with oral Lasix with G-tube. The patient refer back to ER if his condition worsens. [facility]# [id number]
--- NOTE | 2018-07-20 13:42 | GI Progress Note ---
Subjective - Review of Systems Subjective: HAVING BM Objective - Results Result Diagrams: 07/19/18 04:55 07/19/18 04:55 Recent Labs: Laboratory Last Values WBC 5.1 Th/cmm (4.8-10.8) 07/19/18 04:55 RBC 3.44 Mil/cmm (4.30-5.70) L 07/19/18 04:55 Hgb 11.1 gm/dL (12-16) L 07/19/18 04:55 Hct 32.9 % (41.0-60) L 07/19/18 04:55 MCV 95.5 fl (80-99) 07/19/18 04:55 MCH 32.1 pg (26.0-30.0) H 07/19/18 04:55 MCHC Differential 33.7 pg (28.0-36.0) 07/19/18 04:55 RDW 12.6 % (11.5-20.0) 07/19/18 04:55 Plt Count 348 Th/cmm (150-400) 07/19/18 04:55 MPV 7.6 fl 07/19/18 04:55 Neutrophils % 63.7 % (40.0-80.0) 07/19/18 04:55 Lymphocytes % 23.6 % (20.0-50.0) 07/19/18 04:55 Monocytes % 11.1 % (2.0-10.0) H 07/19/18 04:55 Eosinophils % 0.9 % (0.0-5.0) 07/19/18 04:55 Basophils % 0.7 % (0.0-2.0) 07/19/18 04:55 PT 10.3 SECONDS (9.5-11.5) 07/17/18 11:16 INR 0.99 (0.5-1.4) 07/17/18 11:16 PTT (Actin FS) 26.2 SECONDS (26.0-38.0) 07/17/18 11:16 Sodium 147 mEq/L (136-145) H 07/19/18 04:55 Potassium 3.7 mEq/L (3.5-5.1) 07/19/18 04:55 Chloride 112 mEq/L (98-107) H 07/19/18 04:55 Carbon Dioxide 28.8 mEq/L (21.0-31.0) 07/19/18 04:55 Anion Gap 9.9 (7.0-16.0) 07/19/18 04:55 BUN 14 mg/dL (7-25) 07/19/18 04:55 Creatinine 0.5 mg/dL (0.7-1.3) L 07/19/18 04:55 Est GFR ( Amer) > 60.0 ml/min (>90) 07/19/18 04:55 Est GFR (Non-Af Amer) > 60.0 ml/min 07/19/18 04:55 BUN/Creatinine Ratio 28.0 07/19/18 04:55 Glucose 103 mg/dL (70-105) 07/19/18 04:55 Calcium 8.8 mg/dL (8.6-10.3) 07/19/18 04:55 Total Bilirubin 0.3 mg/dL (0.3-1.0) 07/17/18 11:16 AST 20 U/L (13-39) 07/17/18 11:16 ALT 15 U/L (7-52) 07/17/18 11:16 Alkaline Phosphatase 80 U/L (34-104) 07/17/18 11:16 Troponin I 0.03 ng/mL (0.01-0.05) 07/17/18 11:16 Total Protein 7.0 gm/dL (6.0-8.3) 07/17/18 11:16 Albumin 3.4 gm/dL (4.2-5.5) L 07/17/18 11:16 Globulin 3.6 gm/dL 07/17/18 11:16 Albumin/Globulin Ratio 0.9 (1.0-1.8) L 07/17/18 11:16 TSH 13.02 uIU/ml (0.34-5.60) H 07/17/18 11:06 Urine Source CLEAN C 07/17/18 11:00 Urine Color [place] 07/17/18 11:00 Urine Clarity CLOUDY (CLEAR) 07/17/18 11:00 Urine pH 8.5 (4.6 - 8.0) 07/17/18 11:00 Ur Specific [place] <= 1.005 (1.005-1.030) 07/17/18 11:00 Urine Protein 30 mg/dL (NEGATIVE) H 07/17/18 11:00 Urine Glucose (UA) NEGATIVE mg/dL (NEGATIVE) 07/17/18 11:00 Urine Ketones NEGATIVE mg/dL (NEGATIVE) 07/17/18 11:00 Urine Blood MODERATE (NEGATIVE) H 07/17/18 11:00 Urine Nitrate NEGATIVE (NEGATIVE) 07/17/18 11:00 Urine Bilirubin NEGATIVE (NEGATIVE) 07/17/18 11:00 Urine Urobilinogen 0.2 E.U./dL (0.2 - 1.0) 07/17/18 11:00 Ur Leukocyte Esterase SMALL (NEGATIVE) H 07/17/18 11:00 Urine RBC 5-10 /hpf (0-5) H 07/17/18 11:00 Urine WBC 6-10 /hpf (0-5) 07/17/18 11:00 Ur Epithelial Cells MANY /lpf (FEW) 07/17/18 11:00 Urine Bacteria 4+ /hpf (NONE SEEN) H 07/17/18 11:00 - Physical Exam Vitals and I&O: Vital Signs Temp 97.8 F 07/20/18 11:50 Pulse 70 07/20/18 11:50 Resp 18 07/20/18 11:50 BP 109/71 07/20/18 11:50 Pulse Ox 98 07/20/18 11:50 Intake & Output 07/19/18 07/20/18 07/20/18 18:59 06:59 18:59 Intake Total 1000 1050 50 Balance 1000 1050 50 Weight (lbs) 39.009 kg 39.009 kg Intake: Intake, IV Amount 1000 1050 50 D5-0.9%Ns 1,000 ml @ 80 1000 1000 mls/hr IV .[id number] [facility] Rx #:[id number] cefTRIAXone 1 gm In 50 50 Sodium Chloride 0.9% 50 ml @ 100 mls/hr IV Q12HR [facility] Rx#:[id number] Other: # Voids 3 1 # Bowel Movements 1 0 Weight Source Bedscale Bedscale Active Medications: Current Medications Acetaminophen (Tylenol) 650 mg PO Q4H PRN PRN Reason: Pain Or Fever above 101 Stop: 09/15/18 13:21 Al Hydrox/Mg Hydrox/Simethicone (Maalox) 30 ml PO Q6H PRN PRN Reason: Dyspepsia Stop: 09/15/18 13:19 Albuterol Sulfate (Albuterol 2.5mg/3ml Neb Ud) 2.5 mg HHN Q2HRT PRN PRN Reason: Shortness of Breath or Wheeze Stop: 09/15/18 13:19 Benztropine Mesylate (Cogentin) 0.5 mg GT TID [facility] Stop: 09/15/18 13:59 Last Admin: 07/20/18 09:40 Dose: 0.5 mg Bisacodyl (Dulcolax 10 Mg Supp) 10 mg RC DAILY PRN PRN Reason: Constipation Stop: 09/15/18 13:17 Last Admin: 07/19/18 10:50 Dose: 10 mg Calcium Carbonate (Os-Segundo) 500 mg GT DAILY [facility] Stop: 09/16/18 08:59 Last Admin: 07/20/18 09:41 Dose: 500 mg Dextrose/Sodium Chloride (D5-0.9%Ns) 1,000 mls @ 80 mls/hr IV .[id number] [facility] Stop: 09/15/18 13:29 Last Admin: 07/20/18 00:34 Dose: 80 mls/hr Ipratropium [place] (Atrovent Neb 0.5mg/2.5ml) 0.5 mg IH Q2HRT PRN PRN Reason: Shortness of Breath or Wheeze Stop: 09/15/18 13:19 Levothyroxine Sodium (Synthroid) 0.05 mg PO QDAC [facility] Stop: 09/16/18 07:29 Last Admin: 07/20/18 06:40 Dose: 0.05 mg Magnesium Hydroxide (Milk Of Magnesia) 30 ml GT Q2D PRN PRN Reason: Constipation Stop: 09/15/18 13:17 Last Admin: 07/20/18 09:44 Dose: 30 ml Midodrine (Proamatine) 5 mg PO TID [facility] Stop: 09/16/18 08:59 Last Admin: 07/20/18 09:40 Dose: 5 mg Mineral Oil (Mineral Oil 30 Ml) 30 ml PO DAILY [facility] Stop: 09/18/18 12:19 Mineral Oil (Fleet Mineral Oil) 135 ml RC X1 ONE Stop: 07/20/18 14:01 Morphine Sulfate (Morphine) 2 mg IVP Q4H PRN PRN Reason: Abdominal Pain Stop: 09/15/18 13:19 Multivitamins/Vitamin C (Theragran) 1 tab PO DAILY [facility] Stop: 09/16/18 08:59 Last Admin: 07/20/18 09:40 Dose: 1 tab Ondansetron HCl (Zofran) 4 mg IV Q8H PRN PRN Reason: Nausea / Vomiting Stop: 09/15/18 13:21 Polyethylene Glycol (Miralax) 17 gm PO BID [facility] Stop: 09/16/18 08:59 Last Admin: 07/20/18 09:41 Dose: 17 gm Quetiapine Fumarate (Seroquel) 100 mg GT BID [facility]; Protocol Stop: 09/15/18 16:59 Last Admin: 07/20/18 09:41 Dose: 100 mg Risperidone (Risperdal) 0.5 mg GT BID [facility]; Protocol Stop: 09/15/18 16:59 Last Admin: 07/20/18 09:41 Dose: 0.5 mg Sodium Phosphate (Fleet Enema) 135 ml RC PRN PRN PRN Reason: Constipation Stop: 09/15/18 13:17 Last Admin: 07/18/18 17:02 Dose: 135 ml Tamsulosin HCl (Flomax) 0.4 mg GT HS [facility] Stop: 09/15/18 20:59 Last Admin: 07/19/18 20:37 Dose: 0.4 mg Trimethoprim/Sulfamethoxazole (Bactrim Ds) 1 tab PO BID [facility] Stop: 07/25/18 16:59 Valproate Sodium (Depakene) 250 mg GT DAILY [facility] Stop: 09/16/18 08:59 Last Admin: 07/20/18 09:40 Dose: 250 mg Assessment/Plan - Assessment Assessment: 57 YO MALE WITH FECAL IMPACTION HAS GT KUB SHOWED GT IN THE STOMACH 1.TUBE FEEDS LILIANA 2.CONT LAXATIVES 3.CONSIDER OUTPATIENT SCR COLO IF NOT DONE BEFORE
[2018-07-20] MEDS: MINERAL OIL ENEMA 135 ML BOTTLE RC ONE (14:05)
[2018-07-20] MEDS ORDERED: Fleet Enema 135 mL RC PRN (15:25)
[2018-07-20] MEDS ORDERED: Sulfamethoxazole/TMP 800/160mg Tab PO SCH (17:00)
== END 2018-07-20 18:30 | DRG 388 ==
LOC: ER 10:40 → MSI 13:20 → TELE 07-18 04:00
PROVIDERS: ADMIT Internal Medicine; ATTEND Internal Medicine
DX: K56.41 Fecal impaction (principal); R53.2 Functional quadriplegia; N39.0 Urinary tract infection, site not specified; E44.1 Mild protein-calorie malnutrition; Z68.1 Body mass index [BMI] 19.9 or less, adult; E03.9 Hypothyroidism, unspecified; E87.6 Hypokalemia; R13.10 Dysphagia, unspecified; G40.909 Epilepsy, unspecified, not intractable, without status epilepticus; Z79.899 Other long term (current) drug therapy
CPT/HCPCS: 36415-UA; 71045-TC; 74000-TC; 80048-TC; 80053-TC; 81001-TC; 84443-TC; 84484-TC; 85025-TC; 85610-TC; 85730-TC; 87086-90; 93005; 94760; J0696; J7042; Q9967; Z7610

== ENCOUNTER 2018-08-17 15:28 | Inpatient (IN) | payer MEDICARE, MEDICAID ==
[2018-08-17] MEDS ORDERED: Sodium Chloride 0.9% 1,000 ML IV ONE (15:48)
[2018-08-17 16:07] LABS: % BASOPHILS 0.5 % (0.0-2.0); % EOSINOPHILS 0.3 % (0.0-5.0); % LYMPHOCYTES 12.7 % (20.0-50.0); % MONOCYTES 5.9 % (2.0-10.0); % NEUTROPHILS 80.6 % (40.0-80.0); HEMATOCRIT 40.7 % (41.0-60); HEMOGLOBIN 13.2 gm/dL (12-16); LYMPHOCYTE ABSOLUTE 1.2 Th/cmm (1.5-3.0); MEAN CELL VOLUME 95.1 fl (80-99); MEAN CORPUSCULAR HEMOGLOBIN 30.8 pg (26.0-30.0); MEAN CORPUSCULAR HGB CONC 32.4 pg (28.0-36.0); MEAN PLATELET VOLUME 8.8 fl; MONOCYTE ABSOLUTE 0.5 Th/cmm (0.3-1.0); NEUTROPHILE ABSOLUTE 7.4 Th/cmm (1.8-8.0); PLATELET COUNT 260 Th/cmm (150-400); RED BLOOD COUNT 4.28 Mil/cmm (4.30-5.70); RED CELL DISTRIBUTION WIDTH 11.7 % (11.5-20.0); WHITE BLOOD COUNT 9.1 Th/cmm (4.8-10.8)
[2018-08-17 16:17] LABS: INR 0.92 (0.5-1.4); PROTHROMBIN TIME (TEST) 9.6 SECONDS (9.5-11.5)
[2018-08-17 16:22] LABS: ALB/GLOB RATIO 1.1 (1.0-1.8); ALKALINE PHOSPHATASE 88 U/L (34-104); ANION GAP 11.8 (7.0-16.0); BILIRUBIN,TOTAL 0.3 mg/dL (0.3-1.0); BUN - UREA NITROGEN 19 mg/dL (7-25); CALCIUM SERUM 9.7 mg/dL (8.6-10.3); CARBON DIOXIDE 37.9 mEq/L (21.0-31.0); CHLORIDE 96 mEq/L (98-107); CHOLESTEROL 133 mg/dL (<200); CREATININE - SERUM 0.5 mg/dL (0.7-1.3); GFR AFRICAN-AMERICAN > 60.0 ml/min (>90); GFR NON AFRICAN-AMERICAN > 60.0 ml/min; GLUCOSE 74 mg/dL (70-105); HDL -HIGH DENSITY LIPOPROTEIN 49 mg/dL (23-92); POTASSIUM SERUM 3.7 mEq/L (3.5-5.1); SGOT 31 U/L (13-39); SGPT/ALT 13 U/L (7-52); SODIUM SERUM 142 mEq/L (136-145); TOTAL PROTEIN,SERUM 7.7 gm/dL (6.0-8.3); TRIGLYCERIDES 52 mg/dL (<150)
[2018-08-17 16:23] LABS: AMYLASE SERUM 45 U/L (29-103); CREATININE KINASE 77 U/L (30-223); LIPASE 33 U/L (11-82)
--- NOTE | 2018-08-17 16:56 | ED Physician Chart ---
ED Chief Complaint/HPI - Patient Information Date Seen:: 08/17/18 Time Seen:: 15:40 Chief Complaint:: Hematemesis History of Present Illness:: onset x one day of N/V/D, and hematemesis; no report of trauma, H/As, S/T, neck pain, C/P, SOB, Abd. Pain, A/C, melena, hematochezia, fever, chills, or urinary s/s Allergies:: Allergies Allergy/AdvReac Type Severity Reaction Status Date / Time No Known Allergies Allergy Verified 08/17/18 15:56 Vitals:: Vital Signs - 8 hr 08/17/18 15:39 Temp 96.9 F HR 98 RR 18 BP 101/77 O2 Sat % 95 Historian:: Patient, EMS Review:: Nurse's Note Reviewed, Old Chart Reviewed, EMS run form Reviewed ED Review of Systems - Review of Systems General/Constitutional: No fever, No chills, No weight loss, No weakness, No diaphoresis, No edema, No loss of appetite Skin: No skin lesions, No rash, No bruising Head: No headache, No light-headedness Eyes: No loss of vision, No pain, No diplopia ENT: No earache, No nasal drainage, No sore throat, No tinnitus Neck: No neck pain, No swelling, No thyromegaly, No stiffness, No mass noted Cardio Vascular: No chest pain, No palpitations, No PND, No orthopnea, No edema Pulmonary: No SOB, No cough, No sputum, No wheezing GI: Nausea, Vomiting, Diarrhea, No pain, No melena, No hematochezia, No constipation, Hematemesis G/U: No dysuria, No frequency, No hematuria, No nacturia Musculoskeletal: No bone or joint pain, No back pain, No muscle pain Endocrine: No polyuria, No polydipsia Psychiatric: No prior psych history, No depression, No anxiety, No suicidal ideation, No homicidal ideation, No auditory hallucination, No visual hallucination Hematopoietic: No bruising, No lymphadenopathy Allergic/Immuno: No urticaria, No angioedema Neurological: No syncope, No focal symptoms, No weakness, No paresthesia, No headache, Seizure, No dizziness, Confusion, No vertigo ED Past Medical History - Past Medical History Obtainable: Yes Past Medical History: HTN, Dyslipidemia, PUD/GERD, Seizures, Dementia Family History: HTN Social History: Non Smoker, No Alcohol, No Drug Use, Single, Care Facility Surgical History: PEG/GTube Psychiatricy History: Dementia Medication: Reviewed Family Medical History - Family Member Mother History Unknown: Yes ED Physical Exam - Physical Examination General/Constitutional: Awake, Well-developed, well-nourished, Alert, No distress, GCS 15, Non-toxic appearing, Ambulatory Head: Atraumatic Eyes: Lids, conjuctiva normal, PERRL, EOMI Skin: Nl inspection, No rash, No skin lesions, No ecchymosis, Well hydrated, No lymphadenopathy ENMT: External ears, nose nl, TM canals nl, Nasal exam nl, Lips, teeth, gums nl , Oropharynx nl, Tonsils nl Neck: Nontender, Full ROM w/o pain, No JVD, No nuchal rigidity, No bruit, No mass, No stridor Respiratory: Nl effort/Exclusion, Clear to Auscultation, No Wheeze/Rhonchi/Rales Cardio Vascular: RRR, No murmur, gallop, rubs, NL S1 S2, Carotid/Femoral/Distal pulses equal bilaterally GI: No tenderness/rebounding/guarding, No organomegaly, No hernia, Normal BS's, Nondistended, No mass/bruits, No McBurney tenderness, Rectum exam nl : No CVA tenderness Extremities: No tenderness or effusion, Full ROM, normal strength in all extremities, No edema, Normal digits & nails Neuro/Psych: Alert/oriented, DTR's symmetric, Normal sensory exam, Normal motor strength, Judgement/insight normal, Mood normal, Normal gait, No focal deficits Misc: Normal back, No paraspinal tenderness ED Labs/Radiology/EKG Results - Lab Results Results: Laboratory Tests 08/17/18 08/17/18 08/17/18 15:59 15:59 15:59 WBC 9.1 RBC 4.28 L Hgb 13.2 Hct 40.7 L MCV 95.1 MCH 30.8 H MCHC Differential 32.4 RDW 11.7 Plt Count 260 MPV 8.8 Neutrophils % 80.6 H Lymphocytes % 12.7 L Monocytes % 5.9 Eosinophils % 0.3 Basophils % 0.5 PT 9.6 INR 0.92 Sodium 142 Potassium 3.7 Chloride 96 L Carbon Dioxide 37.9 H Anion Gap 11.8 BUN 19 Creatinine 0.5 L Est GFR ( Amer) > 60.0 Est GFR (Non-Af Amer) > 60.0 BUN/Creatinine Ratio 38.0 Glucose 74 Calcium 9.7 Total Bilirubin 0.3 AST 31 ALT 13 Alkaline Phosphatase 88 Creatine Kinase Troponin I B-Natriuretic Peptide Total Protein 7.7 Albumin 4.0 L Globulin 3.7 Albumin/Globulin Ratio 1.1 Triglycerides 52 Cholesterol 133 LDL Cholesterol Direct 81 HDL Cholesterol 49 Amylase Lipase 08/17/18 08/17/18 08/17/18 15:59 15:59 15:59 WBC RBC Hgb Hct MCV MCH MCHC Differential RDW Plt Count MPV Neutrophils % Lymphocytes % Monocytes % Eosinophils % Basophils % PT INR Sodium Potassium Chloride Carbon Dioxide Anion Gap BUN Creatinine Est GFR ( Amer) Est GFR (Non-Af Amer) BUN/Creatinine Ratio Glucose Calcium Total Bilirubin AST ALT Alkaline Phosphatase Creatine Kinase 77 Troponin I 0.01 B-Natriuretic Peptide 95.9 Total Protein Albumin Globulin Albumin/Globulin Ratio Triglycerides Cholesterol LDL Cholesterol Direct HDL Cholesterol Amylase 45 Lipase 33 Comments:: Reviewed - Radiology Results Comments:: CXR: CM; NAD - EKG Interpretations EKG Time:: 16:16 Rate & Rhythm: 107; ST Comments:: non-specific st-t changes ED Septic Shock - . Is Septic Shock (SBP<90, OR Lactate>4 mmol\L) present?: No - <6hrs of presentation: Vital Signs: Vital Signs - 8 hr 08/17/18 15:39 Temp 96.9 F HR 98 RR 18 BP 101/77 O2 Sat % 95 ED Reassessment (Disposition) - Reassessment Reassessment Condition:: Improved - Diagnosis Diagnosis:: Hematemesis; N/V/D; AGE; Gastritis; GI Bleed; Hypoalbuminemia - Aftercare/Follow up Instructions Aftercare/Follow-Up Instructions:: Counseled pt regarding lab results/diagnosis & need follow up, Counseled pt & family regarding lab results/diagnosis & need follow up - Patient Disposition Discharge/Transfer:: Acute Care w/in this hosp Accepting Physician:: Dr. Mcginnis Time Called:: [id number] Time Responded:: 17:30 Admitted to:: Med/Surg Spoke to:: Dr. Mcginnis Admitting Medical Physician:: Dr. Mcginnis Condition at Disposition:: Stable, Improved
[2018-08-17 18:41] VITALS: BP 99/66
[2018-08-17] MEDS ORDERED: Magnesium Hydroxide (MOM) 30 mL UDC GT PRN (19:26)
[2018-08-17] MEDS ORDERED: Fleet Enema 135 mL RC PRN (19:26)
[2018-08-17] MEDS ORDERED: Ipratropium Neb 0.5 mg/2.5 mL UD HHN PRN (19:29)
[2018-08-17] MEDS ORDERED: guaiFENesin 200 MG/10 ML UDC PO PRN (19:29)
[2018-08-17] MEDS ORDERED: Albuterol Nebulizer 2.5mg/3mL HHN PRN (19:29)
[2018-08-17] MEDS: D5-0.9%NS 1,000 ML IV SCH (21:44)
--- NOTE | 2018-08-17 21:44 | History & Physical ---
ADMIT DATE: 08/17/2018 CHIEF COMPLAINT: Vomiting blood. HISTORY OF PRESENT ILLNESS: This is a 57-year-old male with history of cerebral palsy, seizure, dementia, hypertension, admitted from nursing facility secondary to vomiting bright red blood. The patient was evaluated into the ER and admitted for further management. The patient was given Zofran as well as Protonix IV push. PAST MEDICAL HISTORY: As mentioned in the history present illness. PAST SURGICAL HISTORY: Unable to obtain from the patient. ALLERGIES: No known drug allergies. MEDICATIONS: Cogentin, ____, Proscar, Fleet enema, multivitamins, Seroquel, Risperdal, Flomax, and Depakote. FAMILY HISTORY: Noncontributory. SOCIAL HISTORY: The patient is a alf patient requiring 24-hour total care. REVIEW OF SYSTEMS: This is limited secondary to pain, comatose state. We will try to obtain more detailed review of systems later by talking to the family members as well as nursing staff at [facility] [phone]. PHYSICAL EXAMINATION: VITAL SIGNS: Blood pressure 99/66, respirations 18, pulse 100, temperature 98.5. GENERAL: Elderly male, appears chronically ill. NECK: Supple. No mass. LUNGS: Equal breath sounds, few rhonchi. HEART: Regular rate and rhythm with no appreciable murmurs. ABDOMEN: Soft, globular. EXTREMITIES: Positive excoriation and contractures. NEUROLOGIC: Limited. LABORATORY DATA: WBC 9, hemoglobin 13, platelets 260. Sodium 142, potassium 3.7, BUN 19, creatinine 0.5, blood sugar 74, albumin 4.0. ASSESSMENT AND PLAN: 1. Hematemesis/gastrointestinal bleeding. 2. History of fecal impaction. 3. Cerebral palsy. 4. Benign prostatic hyperplasia. 5. Hypothyroidism. 6. Electrolyte abnormalities. PLAN: We will continue the patient on IV antibiotic. We will monitor hemoglobin and hematocrit. We will transfuse. We will place the patient on proton pump inhibitor. We will have GI to evaluate the patient. We will continue to monitor the patient closely. We will keep the patient n.p.o. for now except for medications. We will admit the patient to telemetry. JOB# [id number]
[2018-08-17 23:18] LABS: URINE SOURCE CATH
[2018-08-17 23:23] LABS: URINE BILIRUBIN NEGATIVE (NEGATIVE); URINE BLOOD NEGATIVE (NEGATIVE); URINE GLUCOSE (UA) NEGATIVE (NEGATIVE); URINE KETONE TRACE mg/dL (NEGATIVE); URINE LEUKOCYTE ESTERASE NEGATIVE (NEGATIVE); URINE MICROSCOPIC INDICATED? YES; URINE NITRATE NEGATIVE (NEGATIVE); URINE PH 8.5 (4.6 - 8.0); URINE PROTEIN TRACE mg/dL (NEGATIVE); URINE UROBILINOGEN 0.2 E.U./dL (0.2 - 1.0)
[2018-08-17 23:26] LABS: URINE CLARITY CLEAR (CLEAR); URINE COLOR YELLOW
[2018-08-17 23:28] LABS: URINE BACTERIA FEW /hpf (NONE SEEN); URINE EPITHELIAL CELLS FEW /lpf (FEW); URINE RBC 0-2 /hpf (0-5); URINE WBC 0-2 /hpf (0-5)
[2018-08-18 05:51] LABS: % EOSINOPHILS 0.4 % (0.0-5.0); % LYMPHOCYTES 19.6 % (20.0-50.0); % MONOCYTES 8.7 % (2.0-10.0); % NEUTROPHILS 71.3 % (40.0-80.0); HEMOGLOBIN 11.2 gm/dL (12-16); LYMPHOCYTE ABSOLUTE 1.7 Th/cmm (1.5-3.0); MEAN CELL VOLUME 94.7 fl (80-99); MEAN CORPUSCULAR HEMOGLOBIN 31.5 pg (26.0-30.0); MEAN CORPUSCULAR HGB CONC 33.3 pg (28.0-36.0); MEAN PLATELET VOLUME 8.9 fl; MONOCYTE ABSOLUTE 0.8 Th/cmm (0.3-1.0); NEUTROPHILE ABSOLUTE 6.2 Th/cmm (1.8-8.0); PLATELET COUNT 218 Th/cmm (150-400); RED BLOOD COUNT 3.56 Mil/cmm (4.30-5.70); WHITE BLOOD COUNT 8.7 Th/cmm (4.8-10.8)
[2018-08-18 06:08] LABS: ANION GAP 8.5 (7.0-16.0); BUN - UREA NITROGEN 13 mg/dL (7-25); CALCIUM SERUM 8.7 mg/dL (8.6-10.3); CARBON DIOXIDE 28.1 mEq/L (21.0-31.0); CHLORIDE 105 mEq/L (98-107); CREATININE - SERUM 0.6 mg/dL (0.7-1.3); GFR AFRICAN-AMERICAN > 60.0 ml/min (>90); GFR NON AFRICAN-AMERICAN > 60.0 ml/min; GLUCOSE 106 mg/dL (70-105); POTASSIUM SERUM 4.6 mEq/L (3.5-5.1); SODIUM SERUM 137 mEq/L (136-145)
[2018-08-18 06:09] LABS: HEMATOCRIT 33.8 % (41.0-60)
[2018-08-18] MEDS: Levothyroxine 0.05 Mg Tab PO SCH (06:38)
--- NOTE | 2018-08-18 08:25 | Diagnostic Imaging Report ---
KUB abdominal film HISTORY: Abdominal distention The exam demonstrates mildly distended stool-filled ascending colon. Bowel gas pattern otherwise nonspecific without significant dilatation. No free intraperitoneal air. IMPRESSION: 1. Mildly distended stool-filled ascending colon with an otherwise nonspecific appearance.
[2018-08-18] MEDS ORDERED: Non-Formulary Item 1 EA (Multivit,Th Iron,Other Min [Thera-M] 1 TAB) GT SCH (09:00)
[2018-08-18] MEDS: POLYETHYLENE GLYCOL 3350 17 GM PACK PO SCH (09:12)
[2018-08-18] MEDS: D5-0.9%NS 1,000 ML IV SCH ×2 (09:12→20:36)
[2018-08-18] MEDS: Multivitamin w/ Minerals Tab PO SCH (09:12)
--- NOTE | 2018-08-18 09:43 | Diagnostic Imaging Report ---
Portable chest x-ray HISTORY: Pain Compared to prior exam of July 17, 2018, the heart size is normal. There is a poor inspiration results in accentuation of the lower interstitial lung markings. However, there is suggestion of infiltrate within the left lower lobe. Pneumonia cannot be excluded. Clinical relation needed. IMPRESSION: 1. Suggestion of left lower lobe infiltrate. Pneumonia cannot be excluded. Clinical correlation is needed.
--- NOTE | 2018-08-18 12:43 | Internal Medicine Prog Note ---
Internal Medicine Subjective - Subjective Patient seen and examined:: with staff, chart reviewed Patient is:: awake, verbal, non-interactive, in bed, agitated, confused, congested Patient Complaints of:: congestion Per staff patient has:: no adverse event, no episodes of fall, tolerating meds, refusing care Internal Medicine Objective - Results Result Diagrams: 08/18/18 05:35 08/18/18 05:35 Recent Labs: Laboratory Last Values WBC 8.7 Th/cmm (4.8-10.8) 08/18/18 05:35 RBC 3.56 Mil/cmm (4.30-5.70) L 08/18/18 05:35 Hgb 11.2 gm/dL (12-16) L 08/18/18 05:35 Hct 33.8 % (41.0-60) L D 08/18/18 05:35 MCV 94.7 fl (80-99) 08/18/18 05:35 MCH 31.5 pg (26.0-30.0) H 08/18/18 05:35 MCHC Differential 33.3 pg (28.0-36.0) 08/18/18 05:35 RDW 12.0 % (11.5-20.0) 08/18/18 05:35 Plt Count 218 Th/cmm (150-400) 08/18/18 05:35 MPV 8.9 fl 08/18/18 05:35 Neutrophils % 71.3 % (40.0-80.0) 08/18/18 05:35 Lymphocytes % 19.6 % (20.0-50.0) L 08/18/18 05:35 Monocytes % 8.7 % (2.0-10.0) 08/18/18 05:35 Eosinophils % 0.4 % (0.0-5.0) 08/18/18 05:35 Basophils % 0.0 % (0.0-2.0) 08/18/18 05:35 PT 9.6 SECONDS (9.5-11.5) 08/17/18 15:59 INR 0.92 (0.5-1.4) 08/17/18 15:59 Sodium 137 mEq/L (136-145) 08/18/18 05:35 Potassium 4.6 mEq/L (3.5-5.1) 08/18/18 05:35 Chloride 105 mEq/L (98-107) 08/18/18 05:35 Carbon Dioxide 28.1 mEq/L (21.0-31.0) 08/18/18 05:35 Anion Gap 8.5 (7.0-16.0) 08/18/18 05:35 BUN 13 mg/dL (7-25) 08/18/18 05:35 Creatinine 0.6 mg/dL (0.7-1.3) L 08/18/18 05:35 Est GFR ( Amer) > 60.0 ml/min (>90) 08/18/18 05:35 Est GFR (Non-Af Amer) > 60.0 ml/min 08/18/18 05:35 BUN/Creatinine Ratio 21.7 08/18/18 05:35 Glucose 106 mg/dL (70-105) H 08/18/18 05:35 Calcium 8.7 mg/dL (8.6-10.3) 08/18/18 05:35 Total Bilirubin 0.3 mg/dL (0.3-1.0) 08/17/18 15:59 AST 31 U/L (13-39) 08/17/18 15:59 ALT 13 U/L (7-52) 08/17/18 15:59 Alkaline Phosphatase 88 U/L (34-104) 08/17/18 15:59 Creatine Kinase 77 U/L (30-223) 08/17/18 15:59 Troponin I 0.01 ng/mL (0.01-0.05) 08/17/18 15:59 B-Natriuretic Peptide 95.9 pg/mL (5.0-100.0) 08/17/18 15:59 Total Protein 7.7 gm/dL (6.0-8.3) 08/17/18 15:59 Albumin 4.0 gm/dL (4.2-5.5) L 08/17/18 15:59 Globulin 3.7 gm/dL 08/17/18 15:59 Albumin/Globulin Ratio 1.1 (1.0-1.8) 08/17/18 15:59 Triglycerides 52 mg/dL (<150) 08/17/18 15:59 Cholesterol 133 mg/dL (<200) 08/17/18 15:59 LDL Cholesterol Direct 81 mg/dL (75-193) 08/17/18 15:59 HDL Cholesterol 49 mg/dL (23-92) 08/17/18 15:59 Amylase 45 U/L (29-103) 08/17/18 15:59 Lipase 33 U/L (11-82) 08/17/18 15:59 Urine Source CATH 08/17/18 22:19 Urine Color YELLOW 08/17/18 22:19 Urine Clarity CLEAR (CLEAR) 08/17/18 22:19 Urine pH 8.5 (4.6 - 8.0) 08/17/18 22:19 Ur Specific [place] 1.015 (1.005-1.030) 08/17/18 22:19 Urine Protein TRACE mg/dL (NEGATIVE) 08/17/18 22: Urine Glucose (UA) NEGATIVE mg/dL (NEGATIVE) 08/17/18 22: Urine Ketones TRACE mg/dL (NEGATIVE) 08/17/18 22: Urine Blood NEGATIVE (NEGATIVE) 08/17/18 22: Urine Nitrate NEGATIVE (NEGATIVE) 08/17/18 22:19 Urine Bilirubin NEGATIVE (NEGATIVE) 08/17/18 22:19 Urine Urobilinogen 0.2 E.U./dL (0.2 - 1.0) 08/17/18 22:19 Ur Leukocyte Esterase NEGATIVE (NEGATIVE) 08/17/18 22:19 Urine RBC 0-2 /hpf (0-5) H 08/17/18 22:19 Urine WBC 0-2 /hpf (0-5) 08/17/18 22:19 Ur Epithelial Cells FEW /lpf (FEW) 08/17/18 22:19 Urine Bacteria FEW /hpf (NONE SEEN) 08/17/18 22:19 - Physical Exam Vitals and I&O: Vital Signs Temp 97.5 F 08/18/18 12:00 Pulse 70 08/18/18 12:00 Resp 18 08/18/18 12:00 BP 85/57 08/18/18 12:00 Pulse Ox 96 08/18/18 12:00 Intake & Output 08/17/18 08/18/18 08/18/18 18:59 06:59 18:59 Intake Total 1000 0 917.333 Output Total 500 Balance 1000 -500 917.333 Weight (lbs) 39.916 kg 42.184 kg Intake: Intake, IV Amount 1000 917.333 D5-0.9%Ns 1,000 ml @ 80 917.333 mls/hr IV .[id number] [facility] Rx #:[id number] Sodium Chloride 0.9% 1, 1000 000 ml @ 100 mls/hr IV . Q10H ONE Rx#:[id number] Oral 0 Output: Urine 500 Other: # Voids 2 # Bowel Movements 0 Weight Source Bedscale Bedscale Active Medications: Current Medications Acetaminophen (Tylenol) 650 mg PO Q4H PRN PRN Reason: Pain Or Fever above 101 Stop: 10/16/18 19:28 Albuterol Sulfate (Albuterol 2.5mg/3ml Neb Ud) 2.5 mg HHN Q2HRT PRN PRN Reason: Shortness of Breath or Wheeze Stop: 10/16/18 19:28 Benztropine Mesylate (Cogentin) 0.5 mg GT TID [facility] Stop: 10/16/18 20:59 Last Admin: 08/18/18 09:12 Dose: 0.5 mg Bisacodyl (Dulcolax 10 Mg Supp) 10 mg RC DAILY PRN PRN Reason: Constipation Stop: 10/16/18 19:25 Calcium Carbonate (Os-Segundo) 500 mg GT DAILY [facility] Stop: 10/17/18 08:59 Last Admin: 08/18/18 09:11 Dose: 500 mg Finasteride (Proscar) 5 mg PO HS [facility]; Protocol Stop: 10/16/18 20:59 Last Admin: 08/17/18 21:46 Dose: 5 mg Guaifenesin (Robitussin) 200 mg PO Q4HR PRN PRN Reason: Cough or Congestion Stop: 10/16/18 19:28 Dextrose/Sodium Chloride (D5-0.9%Ns) 1,000 mls @ 80 mls/hr IV .[id number] [facility] Stop: 10/16/18 19:29 Last Admin: 08/18/18 09:12 Dose: 80 mls/hr Cefepime HCl 1 gm/ Dextrose 50 mls @ 100 mls/hr IV Q12H [facility] Stop: 10/17/18 12:44 Ipratropium [place] (Atrovent Neb 0.5mg/2.5ml) 0.5 mg HHN Q2HRT PRN PRN Reason: Shortness of Breath or Wheeze Stop: 10/16/18 19:28 Levothyroxine Sodium (Synthroid) 0.05 mg PO QDAC [facility] Stop: 10/17/18 07:29 Last Admin: 08/18/18 06:38 Dose: 0.05 mg Magnesium Hydroxide (Milk Of Magnesia) 30 ml GT Q2D PRN PRN Reason: Constipation Stop: 10/16/18 19:25 Ondansetron HCl (Zofran) 4 mg IV Q8H PRN PRN Reason: Nausea / Vomiting Stop: 10/16/18 19:28 Last Admin: 08/17/18 21:45 Dose: 4 mg Pantoprazole Sodium (Protonix) 40 mg IVP BID [facility] Stop: 10/17/18 08:59 Last Admin: 08/18/18 09:12 Dose: 40 mg Polyethylene Glycol (Miralax) 17 gm PO DAILY [facility] Stop: 10/17/18 08:59 Last Admin: 08/18/18 09:12 Dose: 17 gm Quetiapine Fumarate (Seroquel) 100 mg GT BID [facility]; Protocol Stop: 10/17/18 08:59 Last Admin: 08/18/18 09:11 Dose: 100 mg Risperidone (Risperdal) 0.5 mg GT BID [facility]; Protocol Stop: 10/17/18 08:59 Last Admin: 08/18/18 09:11 Dose: 0.5 mg Sodium Phosphate (Fleet Enema) 135 ml RC PRN PRN PRN Reason: Constipation Stop: 10/16/18 19:25 Tamsulosin HCl (Flomax) 0.4 mg GT HS [facility] Stop: 10/16/18 20:59 Last Admin: 08/17/18 21:46 Dose: 0.4 mg Valproate Sodium (Depakene) 250 mg GT DAILY [facility] Stop: 10/17/18 08:59 Last Admin: 08/18/18 09:11 Dose: 250 mg General: demented HEENT: NC/AT, PERRLA, EOMI Neck: Supple, No JVD Lungs: congested, rales, ronchi Cardiovascular: RRR, Normal S1, Normal S2, without murmur Abdomen: soft, thin, non-distended, positive bowel sound Extremities: excoriation, contracture Neurological: no change Internal Medicine Assmt/Plan - Assessment Assessment: ASSESSMENT AND PLAN: 1. Hematemesis/gastrointestinal bleeding. 2. History of fecal impaction. 3. Cerebral palsy. 4. Benign prostatic hyperplasia. 5. Hypothyroidism. 6. Electrolyte abnormalities. cxr- possible pmn - Plan Plan: PLAN: We will continue the patient on IV antibiotic. We will monitor hemoglobin and hematocrit. We will transfuse. We will place the patient on proton pump inhibitor. We will have GI to evaluate the patient. We will continue to monitor the patient closely. We will keep the patient n.p.o. for now except for medications. We will admit the patient to telemetry.
--- NOTE | 2018-08-19 01:18 | Consultation ---
DATE OF CONSULTATION: 08/18/2018 REQUESTING PHYSICIAN: Dr. Jerome Mcginnis. REASON FOR CONSULTATION: Hematemesis. Thank you for asking me to see this patient in consultation. HISTORY OF PRESENT ILLNESS: This is a 57-year-old male with history of cerebral palsy, seizure disorder, dementia and hypertension, who has been admitted for concern for vomiting bright red blood. The patient was admitted to the ER and evaluated for further management. He was given Protonix IV as well as Zofran. Since he has been here on the floor, he has not had any further episodes of vomiting any blood. PAST MEDICAL HISTORY: As mentioned above. MEDICATIONS: Have been reviewed. FAMILY HISTORY: Noncontributory for GI disease. SOCIAL HISTORY: He is a assisted patient, requiring 24-hour care. REVIEW OF SYSTEMS: Unobtainable given the patient's current state. PHYSICAL EXAMINATION: VITAL SIGNS: Blood pressure of 99/66, respiratory rate of 18, pulse of 100, temperature 98.5. GENERAL: He appears older than stated age, chronically ill. LUNGS: Clear bilaterally. No wheezes, rales or rhonchi. HEART: Regular rate and rhythm; normal S1, S2. ABDOMEN: Soft, nontender. Bowel sounds are positive. EXTREMITIES: Show lower extremity edema. NEUROLOGIC: Limited. LABORATORY DATA: BUN of 19, creatinine 0.5. Hemoglobin was 13; platelets of 260,000. ASSESSMENT AND PLAN: This is a 57-year-old male with history of cerebral palsy, seizure disorder and dementia, who presents for concern for coffee-ground emesis. 1. Concern for upper gastrointestinal bleed. 2. History of fecal impaction. 3. Cerebral palsy. 4. Hematemesis. Differentials for his presentation include probable erosive esophagitis versus gastritis versus peptic ulcer disease. For now, we will monitor his H and H and see if he has any further repeat episodes of hematemesis and if so, would pursue an upper endoscopy for further evaluation. For now, we will taper IV Protonix and can switch to p.o. Protonix b.i.d. empirically and reserve endoscopy for more emergent situation. We will continue to follow alongside with you for his fecal impaction as well. For now, recommend stool softeners as well as MiraLax as needed. Thank you for allowing me to participate in this patient's care. JOB# [id number]
[2018-08-19] MEDS: Levothyroxine 0.05 Mg Tab PO SCH (06:31)
[2018-08-19 06:40] LABS: % BASOPHILS 0.5 % (0.0-2.0); % EOSINOPHILS 0.8 % (0.0-5.0); % LYMPHOCYTES 33.1 % (20.0-50.0); % NEUTROPHILS 55.6 % (40.0-80.0); HEMATOCRIT 32.3 % (41.0-60); HEMOGLOBIN 10.6 gm/dL (12-16); LYMPHOCYTE ABSOLUTE 1.6 Th/cmm (1.5-3.0); MEAN CORPUSCULAR HEMOGLOBIN 31.7 pg (26.0-30.0); MEAN PLATELET VOLUME 9.6 fl; MONOCYTE ABSOLUTE 0.5 Th/cmm (0.3-1.0); NEUTROPHILE ABSOLUTE 2.7 Th/cmm (1.8-8.0); PLATELET COUNT 180 Th/cmm (150-400); RED BLOOD COUNT 3.36 Mil/cmm (4.30-5.70); RED CELL DISTRIBUTION WIDTH 11.9 % (11.5-20.0); WHITE BLOOD COUNT 4.8 Th/cmm (4.8-10.8)
[2018-08-19 08:36] LABS: ANION GAP 8.3 (7.0-16.0); BUN - UREA NITROGEN 8 mg/dL (7-25); CALCIUM SERUM 8.6 mg/dL (8.6-10.3); CARBON DIOXIDE 26.7 mEq/L (21.0-31.0); CHLORIDE 106 mEq/L (98-107); CREATININE - SERUM 0.5 mg/dL (0.7-1.3); GFR AFRICAN-AMERICAN > 60.0 ml/min (>90); GFR NON AFRICAN-AMERICAN > 60.0 ml/min; GLUCOSE 87 mg/dL (70-105); SODIUM SERUM 137 mEq/L (136-145)
[2018-08-19] MEDS: POLYETHYLENE GLYCOL 3350 17 GM PACK PO SCH (08:59)
[2018-08-19] MEDS: Multivitamin w/ Minerals Tab PO SCH (09:00)
[2018-08-19] MEDS: D5-0.9%NS 1,000 ML IV SCH (11:43)
--- NOTE | 2018-08-19 13:25 | Internal Medicine Prog Note ---
Internal Medicine Subjective - Subjective Patient seen and examined:: with staff, chart reviewed Patient is:: awake, verbal, non-interactive, in bed, agitated, confused, congested Patient Complaints of:: congestion Per staff patient has:: no adverse event, no episodes of fall, tolerating meds, refusing care Internal Medicine Objective - Results Result Diagrams: 08/19/18 04:54 08/19/18 04:54 Recent Labs: Laboratory Last Values WBC 4.8 Th/cmm (4.8-10.8) 08/19/18 04:54 RBC 3.36 Mil/cmm (4.30-5.70) L 08/19/18 04:54 Hgb 10.6 gm/dL (12-16) L 08/19/18 04:54 Hct 32.3 % (41.0-60) L 08/19/18 04:54 MCV 96.0 fl (80-99) 08/19/18 04:54 MCH 31.7 pg (26.0-30.0) H 08/19/18 04:54 MCHC Differential 33.0 pg (28.0-36.0) 08/19/18 04:54 RDW 11.9 % (11.5-20.0) 08/19/18 04:54 Plt Count 180 Th/cmm (150-400) 08/19/18 04:54 MPV 9.6 fl 08/19/18 04:54 Neutrophils % 55.6 % (40.0-80.0) 08/19/18 04:54 Lymphocytes % 33.1 % (20.0-50.0) 08/19/18 04:54 Monocytes % 10.0 % (2.0-10.0) 08/19/18 04:54 Eosinophils % 0.8 % (0.0-5.0) 08/19/18 04:54 Basophils % 0.5 % (0.0-2.0) 08/19/18 04:54 PT 9.6 SECONDS (9.5-11.5) 08/17/18 15:59 INR 0.92 (0.5-1.4) 08/17/18 15:59 Sodium 137 mEq/L (136-145) 08/19/18 04:54 Potassium 4.0 mEq/L (3.5-5.1) 08/19/18 04:54 Chloride 106 mEq/L (98-107) 08/19/18 04:54 Carbon Dioxide 26.7 mEq/L (21.0-31.0) 08/19/18 04:54 Anion Gap 8.3 (7.0-16.0) 08/19/18 04:54 BUN 8 mg/dL (7-25) 08/19/18 04:54 Creatinine 0.5 mg/dL (0.7-1.3) L 08/19/18 04:54 Est GFR ( Amer) > 60.0 ml/min (>90) 08/19/18 04:54 Est GFR (Non-Af Amer) > 60.0 ml/min 08/19/18 04:54 BUN/Creatinine Ratio 16.0 08/19/18 04:54 Glucose 87 mg/dL (70-105) 08/19/18 04:54 Calcium 8.6 mg/dL (8.6-10.3) 08/19/18 04:54 Total Bilirubin 0.3 mg/dL (0.3-1.0) 08/17/18 15:59 AST 31 U/L (13-39) 08/17/18 15:59 ALT 13 U/L (7-52) 08/17/18 15:59 Alkaline Phosphatase 88 U/L (34-104) 08/17/18 15:59 Creatine Kinase 77 U/L (30-223) 08/17/18 15:59 Troponin I 0.01 ng/mL (0.01-0.05) 08/17/18 15:59 B-Natriuretic Peptide 95.9 pg/mL (5.0-100.0) 08/17/18 15:59 Total Protein 7.7 gm/dL (6.0-8.3) 08/17/18 15:59 Albumin 4.0 gm/dL (4.2-5.5) L 08/17/18 15:59 Globulin 3.7 gm/dL 08/17/18 15:59 Albumin/Globulin Ratio 1.1 (1.0-1.8) 08/17/18 15:59 Triglycerides 52 mg/dL (<150) 08/17/18 15:59 Cholesterol 133 mg/dL (<200) 08/17/18 15:59 LDL Cholesterol Direct 81 mg/dL (75-193) 08/17/18 15:59 HDL Cholesterol 49 mg/dL (23-92) 08/17/18 15:59 Amylase 45 U/L (29-103) 08/17/18 15:59 Lipase 33 U/L (11-82) 08/17/18 15:59 Urine Source CATH 08/17/18 22:19 Urine Color YELLOW 08/17/18 22:19 Urine Clarity CLEAR (CLEAR) 08/17/18 22:19 Urine pH 8.5 (4.6 - 8.0) 08/17/18 22:19 Ur Specific [place] 1.015 (1.005-1.030) 08/17/18 22:19 Urine Protein TRACE mg/dL (NEGATIVE) 08/17/18 22:19 Urine Glucose (UA) NEGATIVE mg/dL (NEGATIVE) 08/17/18 22:19 Urine Ketones TRACE mg/dL (NEGATIVE) 08/17/18 22:19 Urine Blood NEGATIVE (NEGATIVE) 08/17/18 22:19 Urine Nitrate NEGATIVE (NEGATIVE) 08/17/18 22:19 Urine Bilirubin NEGATIVE (NEGATIVE) 08/17/18 22:19 Urine Urobilinogen 0.2 E.U./dL (0.2 - 1.0) 08/17/18 22:19 Ur Leukocyte Esterase NEGATIVE (NEGATIVE) 08/17/18 22:19 Urine RBC 0-2 /hpf (0-5) H 08/17/18 22:19 Urine WBC 0-2 /hpf (0-5) 08/17/18 22:19 Ur Epithelial Cells FEW /lpf (FEW) 08/17/18 22:19 Urine Bacteria FEW /hpf (NONE SEEN) 08/17/18 22:19 Stool Occult Blood NEGATIVE (NEGATIVE) 08/18/18 20:35 - Physical Exam Vitals and I&O: Vital Signs Temp 97.2 F 08/19/18 12:00 Pulse 66 08/19/18 12:00 Resp 18 08/19/18 12:00 BP 104/74 08/19/18 12:00 Pulse Ox 97 08/19/18 08:00 Intake & Output 08/18/18 08/19/18 08/19/18 18:59 06:59 18:59 Intake Total 1726.084 7680 1030 Balance 5458.217 9568 1030 Weight (lbs) 42.184 kg 42.184 kg 42.184 kg Intake: Intake, IV Amount 967.896 703 7755 Cefepime 1 gm In Dextrose 50 50 5% 50 ml @ 100 mls/hr IV Q12HR [facility] Rx#:[id number] D5-0.9%Ns 1,000 ml @ 80 917.770 425 6583 mls/hr IV .[id number] [facility] Rx #:[id number] Tube Feeding 250 Other 300 30 Other: # Voids 5 3 # Bowel Movements 0 1 Weight Source Bedscale Bedscale Bedscale Active Medications: Current Medications Acetaminophen (Tylenol) 650 mg PO Q4H PRN PRN Reason: Pain Or Fever above 101 Stop: 10/16/18 19:28 Albuterol Sulfate (Albuterol 2.5mg/3ml Neb Ud) 2.5 mg HHN Q2HRT PRN PRN Reason: Shortness of Breath or Wheeze Stop: 10/16/18 19:28 Benztropine Mesylate (Cogentin) 0.5 mg GT TID [facility] Stop: 10/16/18 20:59 Last Admin: 08/19/18 13:00 Dose: 0.5 mg Bisacodyl (Dulcolax 10 Mg Supp) 10 mg RC DAILY PRN PRN Reason: Constipation Stop: 10/16/18 19:25 Last Admin: 08/18/18 16:21 Dose: 10 mg Calcium Carbonate (Os-Segundo) 500 mg GT DAILY [facility] Stop: 10/17/18 08:59 Last Admin: 08/19/18 09:00 Dose: 500 mg Finasteride (Proscar) 5 mg PO [facility]; Protocol Stop: 10/16/18 20:59 Last Admin: 08/18/18 20:29 Dose: 5 mg Guaifenesin (Robitussin) 200 mg PO Q4HR PRN PRN Reason: Cough or Congestion Stop: 10/16/18 19:28 Dextrose/Sodium Chloride (D5-0.9%Ns) 1,000 mls @ 80 mls/hr IV .[id number] [facility] Stop: 10/16/18 19:29 Last Admin: 08/19/18 11:43 Dose: 80 mls/hr Cefepime HCl 1 gm/ Dextrose 50 mls @ 100 mls/hr IV Q12HR [facility] Stop: 10/17/18 12:59 Last Admin: 08/19/18 08:56 Dose: 100 mls/hr Ipratropium [place] (Atrovent Neb 0.5mg/2.5ml) 0.5 mg HHN Q2HRT PRN PRN Reason: Shortness of Breath or Wheeze Stop: 10/16/18 19:28 Levothyroxine Sodium (Synthroid) 0.05 mg PO QDAC [facility] Stop: 10/17/18 07:29 Last Admin: 08/19/18 06:31 Dose: 0.05 mg Magnesium Hydroxide (Milk Of Magnesia) 30 ml GT Q2D PRN PRN Reason: Constipation Stop: 10/16/18 19:25 Midodrine (Proamatine) 5 mg PO BID [facility] Stop: 10/17/18 16:59 Last Admin: 08/19/18 09:00 Dose: 5 mg Ondansetron HCl (Zofran) 4 mg IV Q8H PRN PRN Reason: Nausea / Vomiting Stop: 10/16/18 19:28 Last Admin: 08/17/18 21:45 Dose: 4 mg Pantoprazole Sodium (Protonix) 40 mg IVP BID [facility] Stop: 10/17/18 08:59 Last Admin: 08/19/18 08:59 Dose: 40 mg Polyethylene Glycol (Miralax) 17 gm PO DAILY [facility] Stop: 10/17/18 08:59 Last Admin: 08/19/18 08:59 Dose: 17 gm Quetiapine Fumarate (Seroquel) 100 mg GT BID [facility]; Protocol Stop: 10/17/18 08:59 Last Admin: 08/19/18 09:00 Dose: 100 mg Risperidone (Risperdal) 0.5 mg GT BID [facility]; Protocol Stop: 10/17/18 08:59 Last Admin: 08/19/18 09:00 Dose: 0.5 mg Sodium Phosphate (Fleet Enema) 135 ml RC PRN PRN PRN Reason: Constipation Stop: 10/16/18 19:25 Tamsulosin HCl (Flomax) 0.4 mg GT HS [facility] Stop: 10/16/18 20:59 Last Admin: 08/18/18 20:30 Dose: 0.4 mg Valproate Sodium (Depakene) 250 mg GT DAILY [facility] Stop: 10/17/18 08:59 Last Admin: 08/19/18 08:59 Dose: 250 mg General: demented HEENT: NC/AT, PERRLA, EOMI Neck: Supple, No JVD Lungs: congested, rales, ronchi Cardiovascular: RRR, Normal S1, Normal S2, without murmur Abdomen: soft, thin, non-distended, positive bowel sound Extremities: excoriation, contracture Neurological: no change Internal Medicine Assmt/Plan - Assessment Assessment: ASSESSMENT AND PLAN: 1. Hematemesis/gastrointestinal bleeding. 2. History of fecal impaction. 3. Cerebral palsy. 4. Benign prostatic hyperplasia. 5. Hypothyroidism. 6. Electrolyte abnormalities. cxr- possible pmn - Plan Plan: PLAN: We will continue the patient on IV antibiotic. We will monitor hemoglobin and hematocrit. We will transfuse. We will place the patient on proton pump inhibitor. We will have GI to evaluate the patient. We will continue to monitor the patient closely. We will keep the patient n.p.o. for now except for medications. We will admit the patient to telemetry.
--- NOTE | 2018-08-19 17:38 | GI Progress Note ---
Subjective - Review of Systems Service Date: 08/19/18 Events since last encounter: no events, no further bleeding Objective - Results Result Diagrams: 08/19/18 04:54 08/19/18 04:54 Recent Labs: Laboratory Last Values WBC 4.8 Th/cmm (4.8-10.8) 08/19/18 04:54 RBC 3.36 Mil/cmm (4.30-5.70) L 08/19/18 04:54 Hgb 10.6 gm/dL (12-16) L 08/19/18 04:54 Hct 32.3 % (41.0-60) L 08/19/18 04:54 MCV 96.0 fl (80-99) 08/19/18 04:54 MCH 31.7 pg (26.0-30.0) H 08/19/18 04:54 MCHC Differential 33.0 pg (28.0-36.0) 08/19/18 04:54 RDW 11.9 % (11.5-20.0) 08/19/18 04:54 Plt Count 180 Th/cmm (150-400) 08/19/18 04:54 MPV 9.6 fl 08/19/18 04:54 Neutrophils % 55.6 % (40.0-80.0) 08/19/18 04:54 Lymphocytes % 33.1 % (20.0-50.0) 08/19/18 04:54 Monocytes % 10.0 % (2.0-10.0) 08/19/18 04:54 Eosinophils % 0.8 % (0.0-5.0) 08/19/18 04:54 Basophils % 0.5 % (0.0-2.0) 08/19/18 04:54 PT 9.6 SECONDS (9.5-11.5) 08/17/18 15:59 INR 0.92 (0.5-1.4) 08/17/18 15:59 Sodium 137 mEq/L (136-145) 08/19/18 04:54 Potassium 4.0 mEq/L (3.5-5.1) 08/19/18 04:54 Chloride 106 mEq/L (98-107) 08/19/18 04:54 Carbon Dioxide 26.7 mEq/L (21.0-31.0) 08/19/18 04:54 Anion Gap 8.3 (7.0-16.0) 08/19/18 04:54 BUN 8 mg/dL (7-25) 08/19/18 04:54 Creatinine 0.5 mg/dL (0.7-1.3) L 08/19/18 04:54 Est GFR ( Amer) > 60.0 ml/min (>90) 08/19/18 04:54 Est GFR (Non-Af Amer) > 60.0 ml/min 08/19/18 04:54 BUN/Creatinine Ratio 16.0 08/19/18 04:54 Glucose 87 mg/dL (70-105) 08/19/18 04:54 Calcium 8.6 mg/dL (8.6-10.3) 08/19/18 04:54 Total Bilirubin 0.3 mg/dL (0.3-1.0) 08/17/18 15:59 AST 31 U/L (13-39) 08/17/18 15:59 ALT 13 U/L (7-52) 08/17/18 15:59 Alkaline Phosphatase 88 U/L (34-104) 08/17/18 15:59 Creatine Kinase 77 U/L (30-223) 08/17/18 15:59 Troponin I 0.01 ng/mL (0.01-0.05) 08/17/18 15:59 B-Natriuretic Peptide 95.9 pg/mL (5.0-100.0) 08/17/18 15:59 Total Protein 7.7 gm/dL (6.0-8.3) 08/17/18 15:59 Albumin 4.0 gm/dL (4.2-5.5) L 08/17/18 15:59 Globulin 3.7 gm/dL 08/17/18 15:59 Albumin/Globulin Ratio 1.1 (1.0-1.8) 08/17/18 15:59 Triglycerides 52 mg/dL (<150) 08/17/18 15:59 Cholesterol 133 mg/dL (<200) 08/17/18 15:59 LDL Cholesterol Direct 81 mg/dL (75-193) 08/17/18 15:59 HDL Cholesterol 49 mg/dL (23-92) 08/17/18 15:59 Amylase 45 U/L (29-103) 08/17/18 15:59 Lipase 33 U/L (11-82) 08/17/18 15:59 Urine Source CATH 08/17/18 22:19 Urine Color YELLOW 08/17/18 22:19 Urine Clarity CLEAR (CLEAR) 08/17/18 22:19 Urine pH 8.5 (4.6 - 8.0) 08/17/18 22:19 Ur Specific [place] 1.015 (1.005-1.030) 08/17/18 22:19 Urine Protein TRACE mg/dL (NEGATIVE) 08/17/18 22:19 Urine Glucose (UA) NEGATIVE mg/dL (NEGATIVE) 08/17/18 22:19 Urine Ketones TRACE mg/dL (NEGATIVE) 08/17/18 22: Urine Blood NEGATIVE (NEGATIVE) 08/17/18 22: Urine Nitrate NEGATIVE (NEGATIVE) 08/17/18 22:19 Urine Bilirubin NEGATIVE (NEGATIVE) 08/17/18 22:19 Urine Urobilinogen 0.2 E.U./dL (0.2 - 1.0) 08/17/18 22:19 Ur Leukocyte Esterase NEGATIVE (NEGATIVE) 08/17/18 22:19 Urine RBC 0-2 /hpf (0-5) H 08/17/18 22:19 Urine WBC 0-2 /hpf (0-5) 08/17/18 22:19 Ur Epithelial Cells FEW /lpf (FEW) 08/17/18 22:19 Urine Bacteria FEW /hpf (NONE SEEN) 08/17/18 22:19 Stool Occult Blood NEGATIVE (NEGATIVE) 08/18/18 20:35 - Physical Exam Vitals and I&O: Vital Signs Temp 97.2 F 08/19/18 16:00 Pulse 62 08/19/18 16:00 Resp 18 08/19/18 16:00 BP 115/68 08/19/18 16:00 Pulse Ox 95 08/19/18 16:00 Intake & Output 08/18/18 08/19/18 08/19/18 18:59 06:59 18:59 Intake Total 1565.209 7510 1030 Balance 4708.625 3870 1030 Weight (lbs) 42.184 kg 42.184 kg 42.184 kg Intake: Intake, IV Amount 967.826 126 9768 Cefepime 1 gm In Dextrose 50 50 5% 50 ml @ 100 mls/hr IV Q12HR [facility] Rx#:[id number] D5-0.9%Ns 1,000 ml @ 80 917.838 410 8061 mls/hr IV .[id number] [facility] Rx #:[id number] Tube Feeding 250 Other 300 30 Other: # Voids 5 3 # Bowel Movements 0 1 Weight Source Bedscale Bedscale Bedscale Active Medications: Current Medications Acetaminophen (Tylenol) 650 mg PO Q4H PRN PRN Reason: Pain Or Fever above 101 Stop: 10/16/18 19:28 Albuterol Sulfate (Albuterol 2.5mg/3ml Neb Ud) 2.5 mg HHN Q2HRT PRN PRN Reason: Shortness of Breath or Wheeze Stop: 10/16/18 19:28 Benztropine Mesylate (Cogentin) 0.5 mg GT TID [facility] Stop: 10/16/18 20:59 Last Admin: 08/19/18 13:00 Dose: 0.5 mg Bisacodyl (Dulcolax 10 Mg Supp) 10 mg RC DAILY PRN PRN Reason: Constipation Stop: 10/16/18 19:25 Last Admin: 08/18/18 16:21 Dose: 10 mg Calcium Carbonate (Os-Segundo) 500 mg GT DAILY [facility] Stop: 10/17/18 08:59 Last Admin: 08/19/18 09:00 Dose: 500 mg Finasteride (Proscar) 5 mg PO HS [facility]; Protocol Stop: 10/16/18 20:59 Last Admin: 08/18/18 20:29 Dose: 5 mg Guaifenesin (Robitussin) 200 mg PO Q4HR PRN PRN Reason: Cough or Congestion Stop: 10/16/18 19:28 Dextrose/Sodium Chloride (D5-0.9%Ns) 1,000 mls @ 80 mls/hr IV .[id number] [facility] Stop: 10/16/18 19:29 Last Admin: 08/19/18 11:43 Dose: 80 mls/hr Cefepime HCl 1 gm/ Dextrose 50 mls @ 100 mls/hr IV Q12HR [facility] Stop: 10/17/18 12:59 Last Admin: 08/19/18 08:56 Dose: 100 mls/hr Ipratropium [place] (Atrovent Neb 0.5mg/2.5ml) 0.5 mg HHN Q2HRT PRN PRN Reason: Shortness of Breath or Wheeze Stop: 10/16/18 19:28 Levothyroxine Sodium (Synthroid) 0.05 mg PO QDAC [facility] Stop: 10/17/18 07:29 Last Admin: 08/19/18 06:31 Dose: 0.05 mg Magnesium Hydroxide (Milk Of Magnesia) 30 ml GT Q2D PRN PRN Reason: Constipation Stop: 10/16/18 19:25 Midodrine (Proamatine) 5 mg PO BID [facility] Stop: 10/17/18 16:59 Last Admin: 08/19/18 17:15 Dose: 5 mg Ondansetron HCl (Zofran) 4 mg IV Q8H PRN PRN Reason: Nausea / Vomiting Stop: 10/16/18 19:28 Last Admin: 08/17/18 21:45 Dose: 4 mg Pantoprazole Sodium (Protonix) 40 mg IVP BID [facility] Stop: 10/17/18 08:59 Last Admin: 08/19/18 17:16 Dose: 40 mg Polyethylene Glycol (Miralax) 17 gm PO DAILY [facility] Stop: 10/17/18 08:59 Last Admin: 08/19/18 08:59 Dose: 17 gm Quetiapine Fumarate (Seroquel) 100 mg GT BID [facility]; Protocol Stop: 10/17/18 08:59 Last Admin: 08/19/18 17:15 Dose: 100 mg Risperidone (Risperdal) 0.5 mg GT BID [facility]; Protocol Stop: 10/17/18 08:59 Last Admin: 08/19/18 17:15 Dose: 0.5 mg Sodium Phosphate (Fleet Enema) 135 ml RC PRN PRN PRN Reason: Constipation Stop: 10/16/18 19:25 Tamsulosin HCl (Flomax) 0.4 mg GT HS [facility] Stop: 10/16/18 20:59 Last Admin: 08/18/18 20:30 Dose: 0.4 mg Valproate Sodium (Depakene) 250 mg GT DAILY [facility] Stop: 10/17/18 08:59 Last Admin: 08/19/18 08:59 Dose: 250 mg General: Cooperative HEENT: Atraumatic, PERRLA Neck: Supple Lungs: Clear to auscultation Abdomen: Bowel sounds Neurological: Normal tone Assessment/Plan - Assessment Assessment: 1. hematemesis 2. Psychiatric history -can change PPI to PO BID -advance diet as tolerated -supportive care and management
[2018-08-20 06:33] LABS: % BASOPHILS 0.5 % (0.0-2.0); % EOSINOPHILS 1.6 % (0.0-5.0); % LYMPHOCYTES 37.8 % (20.0-50.0); % MONOCYTES 12.5 % (2.0-10.0); % NEUTROPHILS 47.6 % (40.0-80.0); EOSINOPHILE ABSOLUTE 0.1 Th/cmm (0.1-0.4); HEMATOCRIT 35.4 % (41.0-60); HEMOGLOBIN 11.7 gm/dL (12-16); LYMPHOCYTE ABSOLUTE 1.7 Th/cmm (1.5-3.0); MEAN CELL VOLUME 95.6 fl (80-99); MEAN CORPUSCULAR HEMOGLOBIN 31.4 pg (26.0-30.0); MEAN CORPUSCULAR HGB CONC 32.9 pg (28.0-36.0); MEAN PLATELET VOLUME 9.5 fl; MONOCYTE ABSOLUTE 0.6 Th/cmm (0.3-1.0); PLATELET COUNT 182 Th/cmm (150-400); RED BLOOD COUNT 3.71 Mil/cmm (4.30-5.70); RED CELL DISTRIBUTION WIDTH 12.3 % (11.5-20.0); WHITE BLOOD COUNT 4.4 Th/cmm (4.8-10.8)
[2018-08-20] MEDS: POLYETHYLENE GLYCOL 3350 17 GM PACK PO SCH (08:48)
[2018-08-20] MEDS: Multivitamin w/ Minerals Tab PO SCH (08:51)
[2018-08-20] MEDS: Levothyroxine 0.05 Mg Tab PO SCH (08:55)
--- NOTE | 2018-08-20 09:38 | Diagnostic Imaging Report ---
Portable chest x-ray HISTORY: Pneumonia Compared with prior exam of August 17, 2018, there remains increased density in the left lower lobe. Infiltrate cannot be excluded. There is accentuation of the interstitial markings in the right lower lobe. Allowing for a poor inspiration, the heart size appears normal. IMPRESSION: 1. Little change in the pulmonary status as noted above.
[2018-08-20] MEDS ORDERED: Pantoprazole 40 mg EC Tab PO SCH (16:30)
--- NOTE | 2018-08-20 17:05 | Discharge Summary ---
DATE OF DISCHARGE: 08/20/2018 CHIEF COMPLAINT: Vomiting blood. FINAL DIAGNOSES: Hematemesis, GI bleeding, which is improved. Fecal impaction, cerebral palsy, BPH, hypothyroidism, electrolyte abnormalities. HISTORY: This is a 57-year-old male with history of palsy, seizure, dementia, dysphagia with G-tube, admitted from nursing facility secondary to abdominal distention. The patient admitted for further management. PHYSICAL EXAMINATION: VITAL SIGNS: Blood pressure 132/78, respiration 19, pulse 86, temperature 98.0. GENERAL: Elderly male, appears chronically ill. NECK: Supple. No mass. LUNGS: Equal breath sounds, few rhonchi. HEART: Regular rate and rhythm without appreciable murmur. ABDOMEN: Soft, globular, positive. EXTREMITIES: Positive excoriation. NEUROLOGIC: Limited. HOSPITAL COURSE: The patient was admitted to telemetry. Cardiology inhibitor. The patient was referred to Dr. Villareal for GI. The patient was placed on conservative management. Hemoglobin has remained stable from 13 to today 11.7. No need for endoscopy at this time. The patient with finding consistent with infiltrate on chest x-ray. The patient was placed on IV antibiotic and later switched to p.o. CONDITION ON DISCHARGE: Fair. DISCHARGE INSTRUCTIONS: The patient to continue with current management. We will monitor hemoglobin, hematocrit, proton pump inhibitor and p.o. antibiotic. JOB# [id number]
[2018-08-20] MEDS ORDERED: Amoxicillin/Clavulanat 875/125 Tab PO SCH (18:00)
--- NOTE | 2018-08-20 18:54 | GI Progress Note ---
Subjective - Review of Systems Service Date: 08/20/18 Events since last encounter: No events Objective - Results Result Diagrams: 08/20/18 05:40 08/19/18 04:54 Recent Labs: Laboratory Last Values WBC 4.4 Th/cmm (4.8-10.8) L 08/20/18 05:40 RBC 3.71 Mil/cmm (4.30-5.70) L 08/20/18 05:40 Hgb 11.7 gm/dL (12-16) L 08/20/18 05:40 Hct 35.4 % (41.0-60) L 08/20/18 05:40 MCV 95.6 fl (80-99) 08/20/18 05:40 MCH 31.4 pg (26.0-30.0) H 08/20/18 05:40 MCHC Differential 32.9 pg (28.0-36.0) 08/20/18 05:40 RDW 12.3 % (11.5-20.0) 08/20/18 05:40 Plt Count 182 Th/cmm (150-400) 08/20/18 05:40 MPV 9.5 fl 08/20/18 05:40 Neutrophils % 47.6 % (40.0-80.0) 08/20/18 05:40 Lymphocytes % 37.8 % (20.0-50.0) 08/20/18 05:40 Monocytes % 12.5 % (2.0-10.0) H 08/20/18 05:40 Eosinophils % 1.6 % (0.0-5.0) 08/20/18 05:40 Basophils % 0.5 % (0.0-2.0) 08/20/18 05:40 PT 9.6 SECONDS (9.5-11.5) 08/17/18 15:59 INR 0.92 (0.5-1.4) 08/17/18 15:59 Sodium 137 mEq/L (136-145) 08/19/18 04:54 Potassium 4.0 mEq/L (3.5-5.1) 08/19/18 04:54 Chloride 106 mEq/L (98-107) 08/19/18 04:54 Carbon Dioxide 26.7 mEq/L (21.0-31.0) 08/19/18 04:54 Anion Gap 8.3 (7.0-16.0) 08/19/18 04:54 BUN 8 mg/dL (7-25) 08/19/18 04:54 Creatinine 0.5 mg/dL (0.7-1.3) L 08/19/18 04:54 Est GFR ( Amer) > 60.0 ml/min (>90) 08/19/18 04:54 Est GFR (Non-Af Amer) > 60.0 ml/min 08/19/18 04:54 BUN/Creatinine Ratio 16.0 08/19/18 04:54 Glucose 87 mg/dL (70-105) 08/19/18 04:54 Calcium 8.6 mg/dL (8.6-10.3) 08/19/18 04:54 Total Bilirubin 0.3 mg/dL (0.3-1.0) 08/17/18 15:59 AST 31 U/L (13-39) 08/17/18 15:59 ALT 13 U/L (7-52) 08/17/18 15:59 Alkaline Phosphatase 88 U/L (34-104) 08/17/18 15:59 Creatine Kinase 77 U/L (30-223) 08/17/18 15:59 Troponin I 0.01 ng/mL (0.01-0.05) 08/17/18 15:59 B-Natriuretic Peptide 95.9 pg/mL (5.0-100.0) 08/17/18 15:59 Total Protein 7.7 gm/dL (6.0-8.3) 08/17/18 15:59 Albumin 4.0 gm/dL (4.2-5.5) L 08/17/18 15:59 Globulin 3.7 gm/dL 08/17/18 15:59 Albumin/Globulin Ratio 1.1 (1.0-1.8) 08/17/18 15:59 Triglycerides 52 mg/dL (<150) 08/17/18 15:59 Cholesterol 133 mg/dL (<200) 08/17/18 15:59 LDL Cholesterol Direct 81 mg/dL (75-193) 08/17/18 15:59 HDL Cholesterol 49 mg/dL (23-92) 08/17/18 15:59 Amylase 45 U/L (29-103) 08/17/18 15:59 Lipase 33 U/L (11-82) 08/17/18 15:59 Urine Source CATH 08/17/18 22:19 Urine Color YELLOW 08/17/18 22:19 Urine Clarity CLEAR (CLEAR) 08/17/18 22:19 Urine pH 8.5 (4.6 - 8.0) 08/17/18 22:19 Ur Specific [place] 1.015 (1.005-1.030) 08/17/18 22:19 Urine Protein TRACE mg/dL (NEGATIVE) 08/17/18 22:19 Urine Glucose (UA) NEGATIVE mg/dL (NEGATIVE) 08/17/18 22:19 Urine Ketones TRACE mg/dL (NEGATIVE) 08/17/18 22: Urine Blood NEGATIVE (NEGATIVE) 08/17/18 22: Urine Nitrate NEGATIVE (NEGATIVE) 08/17/18 22:19 Urine Bilirubin NEGATIVE (NEGATIVE) 08/17/18 22:19 Urine Urobilinogen 0.2 E.U./dL (0.2 - 1.0) 08/17/18 22:19 Ur Leukocyte Esterase NEGATIVE (NEGATIVE) 08/17/18 22:19 Urine RBC 0-2 /hpf (0-5) H 08/17/18 22:19 Urine WBC 0-2 /hpf (0-5) 08/17/18 22:19 Ur Epithelial Cells FEW /lpf (FEW) 08/17/18 22:19 Urine Bacteria FEW /hpf (NONE SEEN) 08/17/18 22:19 Stool Occult Blood NEGATIVE (NEGATIVE) 08/18/18 20:35 - Physical Exam Vitals and I&O: Vital Signs Temp 98.7 F 08/20/18 17:08 Pulse 99 08/20/18 17:08 Resp 18 08/20/18 17:08 BP 117/89 08/20/18 17:08 Pulse Ox 96 08/20/18 17:08 Intake & Output 08/19/18 08/20/18 08/20/18 18:59 06:59 18:59 Intake Total 1080 50 720 Balance 1080 50 720 Weight (lbs) 42.184 kg 42.184 kg 42.184 kg Intake: Intake, IV Amount 1050 50 Cefepime 1 gm In Dextrose 50 50 5% 50 ml @ 100 mls/hr IV Q12HR [facility] Rx#:[id number] D5-0.9%Ns 1,000 ml @ 80 1000 mls/hr IV .[id number] [facility] Rx #:[id number] Tube Feeding 320 Other 30 400 Other: # Voids 3 Weight Source Bedscale Bedscale Bedscale Active Medications: Current Medications Acetaminophen (Tylenol) 650 mg PO Q4H PRN PRN Reason: Pain Or Fever above 101 Stop: 10/16/18 19:28 Albuterol Sulfate (Albuterol 2.5mg/3ml Neb Ud) 2.5 mg HHN Q2HRT PRN PRN Reason: Shortness of Breath or Wheeze Stop: 10/16/18 19:28 Amoxicillin/Clavulanate Potassium (Augmentin 875-125mg) 1 tab PO BIDWM [facility] Stop: 10/19/18 17:59 Last Admin: 08/20/18 17:34 Dose: 1 tab Benztropine Mesylate (Cogentin) 0.5 mg GT TID [facility] Stop: 10/16/18 20:59 Last Admin: 08/20/18 15:49 Dose: 0.5 mg Bisacodyl (Dulcolax 10 Mg Supp) 10 mg RC DAILY PRN PRN Reason: Constipation Stop: 10/16/18 19:25 Last Admin: 08/18/18 16:21 Dose: 10 mg Calcium Carbonate (Os-Segundo) 500 mg GT DAILY [facility] Stop: 10/17/18 08:59 Last Admin: 08/20/18 08:49 Dose: 500 mg Finasteride (Proscar) 5 mg PO HS [facility]; Protocol Stop: 10/16/18 20:59 Last Admin: 08/19/18 20:21 Dose: 5 mg Guaifenesin (Robitussin) 200 mg PO Q4HR PRN PRN Reason: Cough or Congestion Stop: 10/16/18 19:28 Ipratropium [place] (Atrovent Neb 0.5mg/2.5ml) 0.5 mg HHN Q2HRT PRN PRN Reason: Shortness of Breath or Wheeze Stop: 10/16/18 19:28 Levothyroxine Sodium (Synthroid) 0.05 mg PO QDAC [facility] Stop: 10/17/18 07:29 Last Admin: 08/20/18 08:55 Dose: 0.05 mg Magnesium Hydroxide (Milk Of Magnesia) 30 ml GT Q2D PRN PRN Reason: Constipation Stop: 10/16/18 19:25 Midodrine (Proamatine) 5 mg PO BID [facility] Stop: 10/17/18 16:59 Last Admin: 08/20/18 17:35 Dose: 5 mg Ondansetron HCl (Zofran) 4 mg IV Q8H PRN PRN Reason: Nausea / Vomiting Stop: 10/16/18 19:28 Last Admin: 08/17/18 21:45 Dose: 4 mg Pantoprazole Sodium (Protonix) 40 mg PO BIDAC [facility] Stop: 10/19/18 16:29 Last Admin: 08/20/18 15:49 Dose: 40 mg Polyethylene Glycol (Miralax) 17 gm PO DAILY [facility] Stop: 10/17/18 08:59 Last Admin: 08/20/18 08:48 Dose: 17 gm Quetiapine Fumarate (Seroquel) 100 mg GT BID [facility]; Protocol Stop: 10/17/18 08:59 Last Admin: 08/20/18 17:34 Dose: 100 mg Risperidone (Risperdal) 0.5 mg GT BID [facility]; Protocol Stop: 10/17/18 08:59 Last Admin: 08/20/18 17:35 Dose: 0.5 mg Sodium Phosphate (Fleet Enema) 135 ml RC PRN PRN PRN Reason: Constipation Stop: 10/16/18 19:25 Tamsulosin HCl (Flomax) 0.4 mg GT HS [facility] Stop: 10/16/18 20:59 Last Admin: 08/19/18 20:21 Dose: 0.4 mg Valproate Sodium (Depakene) 250 mg GT DAILY [facility] Stop: 10/17/18 08:59 Last Admin: 08/20/18 08:49 Dose: Not Given General: Cooperative HEENT: Atraumatic, PERRLA Neck: Supple Lungs: Clear to auscultation Abdomen: Bowel sounds Neurological: Normal tone Assessment/Plan - Assessment Assessment: 1. hematemesis 2. Psychiatric history -can change PPI to PO BID -advance diet as tolerated -supportive care and management
== END 2018-08-20 18:20 | DRG 377 ==
LOC: ER 15:28 → TELE 17:55 → UNDODISIN 08-20 16:14
PROVIDERS: ADMIT Internal Medicine; ATTEND Internal Medicine
DX: K29.71 Gastritis, unspecified, with bleeding (principal); R53.2 Functional quadriplegia; J18.9 Pneumonia, unspecified organism; G80.9 Cerebral palsy, unspecified; N40.0 Benign prostatic hyperplasia without lower urinary tract symptoms; E03.9 Hypothyroidism, unspecified; I10 Essential (primary) hypertension; E78.5 Hyperlipidemia, unspecified; K21.9 Gastro-esophageal reflux disease without esophagitis; K56.41 Fecal impaction; G40.909 Epilepsy, unspecified, not intractable, without status epilepticus; K52.9 Noninfective gastroenteritis and colitis, unspecified; F03.90 Unspecified dementia, unspecified severity, without behavioral disturbance, psychotic disturbance, mood disturbance, and anxiety; Z82.49 Family history of ischemic heart disease and other diseases of the circulatory system; Z93.1 Gastrostomy status
CPT/HCPCS: 36415-UA; 71045-TC; 74000-TC; 80048-TC; 80053-TC; 80061-TC; 81001-TC; 82150-TC; 82270-TC; 82550-TC; 83690-TC; 83880-TC; 84484-TC; 85025-TC; 85610-TC; 93005; 94760; 96374; 96375; C9113; J0692; J2405; J7030; J7042; X3401; Z7610